=== PATIENT | female | born 1965 | race Caucasian/White ===

== ENCOUNTER 2017-01-15 12:55 | Inpatient (IN) | payer BC, OTHER ==
[~2017-01-15] VITALS: Ht 167.6 cm; Wt 96.0 kg
[2017-01-15 13:47] LABS: MEAN CORPUSCULAR HEMOGLOBIN 32.4 pg (27.0-33.0); MEAN CORPUSCULAR HGB CONC 34.6 g/dl (32.0-36.5); MEAN CORPUSCULAR VOLUME 93.7 fl (80.0-96.0); RED CELL DISTRIBUTION WIDTH 11.8 % (11.5-14.5); WHITE BLOOD COUNT 4.1 K/mm3 (4.0-10.0)
[2017-01-15] MEDS ORDERED: ACETYLCYSTEINE IV ONE ×2 (14:00→19:00)
[2017-01-15] MEDS ORDERED: D5W IV ONE ×2 (14:00→19:00)
[2017-01-15 14:01] LABS: INR 0.96
[2017-01-15 14:17] LABS: ALBUMIN 4.3 GM/DL (3.2-5.2); ALBUMIN/GLOBULIN RATIO 1.39 (1.00-1.93); ALKALINE PHOSPHATASE 82 U/L (45-117); ALT/SGPT 123 U/L (12-78); ANION GAP 17 MEQ/L (8-16); AST/SGOT 79 U/L (15-37); BILIRUBIN,DIRECT < 0.1 MG/DL (0.0-0.2); BILIRUBIN,TOTAL 0.3 MG/DL (0.2-1.0); BLOOD UREA NITROGEN 16 MG/DL (7-18); CARBON DIOXIDE LEVEL 21 MEQ/L (21-32); CHLORIDE LEVEL 104 MEQ/L (98-107); CREATININE FOR GFR 0.68 MG/DL (0.55-1.02); GLOMERULAR FILTRATION RATE > 60.0 (>51); GLUCOSE, FASTING 147 MG/DL (70-105); SODIUM LEVEL 142 MEQ/L (136-145); TOTAL PROTEIN 7.4 GM/DL (6.4-8.2)
[2017-01-15] MEDS ORDERED: ONDANSETRON 4MG/2ML VIAL (J2405) As Ordered ONE (14:31)
[2017-01-15] MEDS ORDERED: METO12TA PO (14:51)
[2017-01-15] MEDS ORDERED: OMEP20CA3 PO (14:51)
[2017-01-15] MEDS ORDERED: LEVO50TA5 PO (14:51)
[2017-01-15] MEDS ORDERED: ACETYLCYSTEINE 3,700 MG in D5W 500 ML IV ONE (15:00)
[2017-01-15] MEDS ORDERED: OXAZEPAM 15 MG CAP As Ordered ONE ×2 (15:31→19:49)
[2017-01-15] MEDS ORDERED: METOPROLOL TART 50 MG TAB As Ordered ONE ×2 (15:31→19:48)
[2017-01-15 15:44] LABS: AMPHETAMINES LEVEL URINE NEGATIVE (NEGATIVE); BENZODIAZEPINES URINE NEGATIVE (NEGATIVE); COCAINE METABOLITE URINE NEGATIVE (NEGATIVE); CONTROL LINE INT CTR LINE PRESENT; METHADONE URINE NEGATIVE (NEGATIVE); OPIATES URINE POSITIVE (NEGATIVE); TRICYCLIC ANTIDEPRESS URINE NEGATIVE (NEGATIVE)
[2017-01-15] MEDS ORDERED: LORazepam 2 MG/ML VIAL (J2060) As Ordered ONE (16:19)
[2017-01-15] MEDS ORDERED: METOPROLOL 5 MG/5 ML VIAL As Ordered ONE (16:19)
[2017-01-15] MEDS ORDERED: FOLIC ACID 1 MG in NS 50 ML IV ONE (16:45)
[2017-01-15] MEDS ORDERED: THIAMINE 100 MG TAB PO ONE (19:00)
[2017-01-15] MEDS ORDERED: MULTIVITAMINS/MINERALS THERAP 1 TAB PO ONE (19:00)
[2017-01-15] MEDS ORDERED: OXAZEPAM 15 MG CAP PO ONE (19:00)
--- NOTE | 2017-01-15 22:43 | HPE ---
DATE OF ADMISSION: 01/15/2017 PRIMARY CARE PROVIDER: Dr. Kramer REASON FOR ADMISSION: Suicide attempt. HISTORY OF PRESENT ILLNESS: Patient is a 51-year-old female with past medical history significant for depression and previous suicide attempt, hypertension, hyperlipidemia, hypothyroidism and gastroesophageal reflux disease (GERD), presented to the emergency room via ambulance. The patient stated that at 6:30 this morning she took an unknown number of Percocet; she was trying to kill herself. She had a similar attempt 2 years ago. She was also drinking wine. She stated her boss came to her house to check on her and called a manager state. When the patient did not answer the door, they climbed through the window and found her on her bed. The patient had vomited around noon today. She was hypertensive and tachycardiac. She was brought into the emergency room. She was started on Mucomyst and intravenous (IV) fluids. The patient was alert and oriented times three. She stated she was trying to hurt herself, did not want to any family contacted lives, at home alone. After her Mucomyst was started, hospitalist was called for the admission. REVIEW OF SYSTEMS: The patient admits to feeling fatigue and nauseated, otherwise review of system was negative. PAST MEDICAL HISTORY: Significant for hypertension, hypothyroidism, hyperlipidemia, GERD. HOME MEDICATIONS: - levothyroxine 50 mcg by mouth daily - metoprolol 25 mg by mouth twice a day - omeprazole 20 mg by mouth daily ALLERGIES: SULFA, reaction rash. PAST SURGICAL HISTORY: Significant for dilation and curettage (D and C), hysterectomy, tonsillectomy, adenoidectomy, left meniscal repair and right thumb surgery. SOCIAL HISTORY: The patient denies tobacco use but states she drinks a bottle and a half of wine a day. Lives alone. FAMILY HISTORY: Noncontributory. PHYSICAL EXAMINATION: Blood pressure initially was 208/92, repeat was 150/89, pulse was 113 initially, repeat was 89, respiratory rate 18, temperature 96.9, pulse oximetry 95% on room air. HEENT: Pupils equal, round, reactive. Neck: Supple. No jugular venous distention (JVD). Lungs: Clear to auscultation (CTA) bilaterally. Abdomen: Soft, nontender, nondistended. Cardiac: Tachycardiac. No murmurs appreciated. Extremities: No clubbing, cyanosis or edema. LABORATORY FINDINGS: WBC 4.1, hemoglobin 14.1, hematocrit 40.8, platelet count 231. Sodium 142, potassium 4, chloride 104, BUN 16, creatinine 0.68, fasting glucose 147, total bilirubin 0.3, AST 79, ALT 123. Toxicology was positive for opioids. Salicylate less than 1.7. Acetaminophen level was 66.1 at 1 o'clock. Alcohol level was 0.077. Coag: INR 0.96, PT 12.9. ASSESSMENT AND PLAN: 1. Suicide attempt with Percocet overdose. The patient was started on Mucomyst. We will admit the patient to telemetry monitoring overnight to monitor for any arrhythmias. Repeat electrocardiogram (EKG) in the morning. The patient will need a psychiatric evaluation once medically cleared. She admits to having suicide thoughts and attempted suicide. She has a history of suicide attempts in the past as well. 2. History of hypertension. We will resume the patient's home medications. 3. History of hypothyroidism. Continue levothyroxine. 4. History of gastroesophageal reflux disease. Will continue the patient's omeprazole 20 mg by mouth daily. 5. Alcohol abuse. We will start the patient on Serax, thiamine, folate and multivitamin. The patient received a dose of Ativan in the emergency room. 6. Deep vein thrombosis (DVT) prophylaxis. Sequential compression devices (SCDs) while in bed.
[2017-01-16 00:05] VITALS: BP 183/99
--- NOTE | 2017-01-16 00:07 | EDDOCDS ---
Physician Documentation [facility] Name: Mary Carmen Sands Age: 51 yrs Sex: Female : 1965 Arrival Date: 01/15/2017 Time: 12:55 Bed Admit Hold Private MD: Disposition: 01/15/17 14:59 Hospitalization ordered by Lyudmila Arauz for Inpatient Admission. Preliminary diagnosis is Intentional self-harm by other specified means - overdose. - Bed requested for [facility] ([facility]). - Status is Inpatient Admission. sls1 - Condition is Stable. - Problem is new. - Symptoms are unchanged. Historical: - Allergies: SULFA (SULFONAMIDES) (Rash); - Home Meds: 1. metoprolol tartrate 50 mg Oral tab 1 tab 2 times per day (Last dose: 01/14/2017) 2. pravastatin oral Unknown oral once daily (Last dose: Unknown) 3. Levothyroxine Unknown Oral once daily (Last dose: 01/14/2017) 4. omeprazole 20 mg Oral cpDR 1 cap once daily (Last dose: 01/14/2017) - PMHx: Hypothyroidism; Hypertension; Hypercholesterolemia; GERD; Diabetes - NIDDM: controlled; - PSHx: D & C; Hysterectomy; Tonsillectomy; Adenoidectomy; left menicus repair; rt thumb; - Social history: Smoking status: Patient states was never smoker of tobacco. No barriers to communication noted, The patient speaks fluent Slovak. - Family history: Not pertinent. - : The pt / caregiver states he / she is not on anticoagulants. Home medication list is obtained from the patient. - Exposure Risk Screening:: None identified. INTERPRETIVE NATURALIST: 01/15 13:18 LMP N/A - Hysterectomy [facility] Vital Signs: 13:00 BP 208 / 92 (auto/); kpj 13:01 Pulse 113 MON; Resp 18; Pulse Ox 95% on R/A; kpj 13:03 BP 208 / 92; Pulse 108; Resp 20; Temp 96.9(TE); Pulse Ox 95% on R/A; Weight 74.84 kg / nb2 164.99 lbs (R); Height 5 ft. 6 in. (167.64 cm) (R); Pain 0/10; 13:11 BP 189 / 110 (auto/); kpj 13:11 Pulse 98 MON; Resp 18; Pulse Ox 95% on R/A; kpj 13:17 BP 174 / 89 (auto/); kpj 13:17 Pulse 90 MON; Resp 18; Pulse Ox 95% on R/A; kpj 13:34 BP 164 / 87 (auto/); kpj 13:34 Pulse 88 MON; Resp 16; Pulse Ox 93% on R/A; kpj 13:49 BP 150 / 89 (auto/); kpj 13:49 Pulse 89 MON; Resp 16; Pulse Ox 93% on R/A; kpj 14:04 BP 175 / 96 (auto/); nn1 14:19 BP 166 / 89 (auto/); nn1 14:19 Pulse 89 MON; Pulse Ox 96% ; nn1 14:33 Pulse 91 MON; Pulse Ox 95% ; jc4 14:34 BP 172 / 96 (auto/); jc4 14:49 BP 170 / 95 (auto/); jc4 14:49 Pulse 90 MON; Pulse Ox 95% ; jc4 15:04 BP 182 / 98 (auto/); jc4 15:05 Pulse 99 MON; Pulse Ox 96% ; jc4 15:11 Pulse 96 MON; Pulse Ox 96% ; jc4 15:12 BP 191 / 102; Pulse 91; Resp 20; Temp 97.9(T); Pulse Ox 95% on R/A; Pain 0/10; jc4 15:12 BP 195 / 102 (auto/); jc4 15:50 BP 207 / 101 (auto/); jc4 15:50 Pulse 90 MON; Pulse Ox 95% ; jc4 16:03 Pulse 90 MON; Pulse Ox 95% ; jc4 16:05 BP 202 / 100 (auto/); jc4 16:20 BP 200 / 104 (auto/); jc4 16:20 Pulse 84 MON; Pulse Ox 94% ; jc4 16:35 BP 175 / 92 (auto/); jc4 16:49 Pulse 74 MON; Pulse Ox 94% ; jc4 16:50 BP 174 / 100 (auto/); jc4 17:05 BP 169 / 101 (auto/); jc4 17:05 Pulse 75 MON; Pulse Ox 94% ; jc4 17:18 Pulse 73 MON; Pulse Ox 95% ; jc4 17:20 BP 184 / 98 (auto/); jc4 17:34 Pulse 75 MON; Pulse Ox 94% ; jc4 17:35 BP 184 / 89 (auto/); jc4 17:50 BP 180 / 89 (auto/); jc4 17:51 Pulse 78 MON; Pulse Ox 92% ; jc4 18:05 BP 178 / 87 (auto/); jc4 18:09 Pulse 76 MON; Pulse Ox 95% ; jc4 18:20 BP 180 / 89 (auto/); nn1 18:20 Pulse 75 MON; Pulse Ox 95% ; nn1 18:35 BP 183 / 90 (auto/); nn1 18:35 Pulse 77 MON; Pulse Ox 94% ; nn1 18:50 BP 174 / 91 (auto/); nn1 18:50 Pulse 71 MON; Pulse Ox 95% ; nn1 19:05 BP 193 / 87 (auto/); nn1 19:05 Pulse 75 MON; Pulse Ox 95% ; nn1 19:20 BP 230 / 106 (auto/); nn1 19:20 Pulse 87 MON; nn1 19:21 BP 213 / 102 (auto/); nn1 19:21 Pulse 80 MON; Pulse Ox 94% ; nn1 19:35 BP 202 / 92 (auto/); nn1 19:35 Pulse 75 MON; Pulse Ox 95% ; nn1 19:50 BP 186 / 90 (auto/); nn1 19:50 Pulse 72 MON; Pulse Ox 95% ; nn1 20:00 Resp 20; nn1 20:05 BP 198 / 97 (auto/); nn1 20:05 Pulse 80 MON; Pulse Ox 95% ; nn1 20:20 BP 204 / 101 (auto/); nn1 20:20 Pulse 73 MON; Pulse Ox 94% ; nn1 20:35 BP 184 / 84 (auto/); nn1 20:35 Pulse 71 MON; Pulse Ox 93% ; nn1 20:50 BP 203 / 96 (auto/); nn1 20:50 Pulse 75 MON; Pulse Ox 95% ; nn1 21:05 BP 189 / 88 (auto/); nn1 21:05 Pulse 73 MON; Pulse Ox 95% ; nn1 21:20 BP 189 / 93 (auto/); nn1 21:20 Pulse 72 MON; Pulse Ox 96% ; nn1 21:35 BP 199 / 95 (auto/); nn1 21:35 Pulse 74 MON; Pulse Ox 93% ; nn1 21:50 BP 189 / 86 (auto/); nn1 21:50 Pulse 66 MON; Pulse Ox 94% ; nn1 21:58 Resp 20; Temp 98.2(O); nn1 22:05 BP 175 / 84 (auto/); nn1 22:05 Pulse 65 MON; Pulse Ox 94% ; nn1 22:20 BP 159 / 84 (auto/); nn1 22:20 Pulse 62 MON; Pulse Ox 94% ; nn1 22:35 BP 153 / 82 (auto/); nn1 22:35 Pulse 62 MON; Pulse Ox 94% ; nn1 23:05 BP 171 / 81 (auto/); nn1 23:05 Pulse 63 MON; Pulse Ox 96% ; nn1 23:20 BP 169 / 85 (auto/); nn1 23:20 Pulse 62 MON; Pulse Ox 97% ; nn1 23:35 BP 154 / 84 (auto/); nn1 23:35 Pulse 60 MON; Pulse Ox 96% ; nn1 23:50 BP 154 / 86 (auto/); nn1 23:50 Pulse 62 MON; Pulse Ox 97% ; nn1 23:50 Resp 18; Temp 98.2(TE); Pulse Ox 96% on R/A; nn1 23:50 Pain 0/10; nn1 13:03 Body Mass Index 26.63 (74.84 kg, 167.64 cm) nb2 MDM: 13:15 Consult PFS/PSA/Fitness Technician ordered. sd1 13:15 Consult PFS/PSA/Fitness Technician: Patient's case requires discussion with on-call sd1 Psychiatrist ordered. 13:15 PSA/PFS to call Nursing Bartender Helper, to enter patient data on [place] Safe Act if patient sd1 involuntarily admitted or transferred for SI or HI ordered. 13:15 Peripheral Edp Equipment Operator/Pulse Ox/q 15 min VS ordered. sd1 13:15 Confirm accurate psychiatric medication list and times of last dosage ordered. sd1 13:15 Detain Pt Until Medically/PFS Cleared ordered. sd1 13:15 IV Saline Lock ordered. sd1 13:15 Rhythm Strip to chart ordered. sd1 13:15 NS 0.9% 1000 ml IV at 250 mL/hr continuous ordered. sd1 13:16 Acetaminophen Level Ordered. EDMS 13:16 Basic Metabolic Profile Ordered. EDMS 13:16 Complete Blood Count Ordered. EDMS 13:16 Drug Eval Toxicology ED Only Ordered. EDMS 13:16 Ethyl Alcohol (ethanol) Ordered. EDMS 13:16 Liver Profile Ordered. EDMS 13:16 Salicylate Level Ordered. EDMS 13:16 Thyroid Stimulating Hormone Ordered. EDMS 13:16 ECG WITH READING ER PHYS+CARDIAG ordered. EDMS 13:19 Acetylcysteine (1st Step) 150mg/kg 150 mg/kg IVPB once over 60 mins; mix in 250mL of sd1 D5W- 11 grams IV ordered. 13:31 PT/INR Ordered. EDMS 14:27 Ondansetron 4 mg IVP once ordered. sd1 14:27 Acetaminophen Level Reviewed. sd1 14:27 Basic Metabolic Profile Reviewed. sd1 14:27 Ethyl Alcohol (ethanol) Reviewed. sd1 14:27 Liver Profile Reviewed. sd1 14:27 Salicylate Level Reviewed. sd1 14:27 Complete Blood Count Reviewed. sd1 14:27 Thyroid Stimulating Hormone Reviewed. sd1 14:27 PT/INR Reviewed. sd1 14:31 Acetylcysteine (2nd Step) 50mg/kg 50 mg/kg IVPB once over 4 hrs; mix in 500mL of D5W; sd1 3700mg IV ordered. 14:31 Acetylcysteine (3rd Step) 100mg/kg 100 mg/kg IVPB once over 16 hrs; mix in 1000mL of sd1 D5W; 7400mg IV ordered. 14:31 BED REQUEST+ADM ordered. EDMS 15:06 Financial registration complete. [id number] 15:24 Oxazepam 30 mg PO once ordered. sd1 15:27 [facility] Payment Agreement was scanned into [employer] and attached to record. ks16 15:30 Metoprolol (Tartrate) 50 mg PO once ordered. jc4 16:32 Metoprolol 5 mg IVP once; Hold for SBP < 100 or HR < 60. ordered. jc4 16:32 LORazepam 1 mg IVP once ordered. jc4 16:47 Admission / Observation Status ordered. EDMS 16:47 NPO DIET ordered. EDMS 19:03 Consult PFS/PSA/Fitness Technician complete. cl 19:03 Consult PFS/PSA/Fitness Technician: Patient's case requires discussion with on-call cl Psychiatrist complete. 19:03 PSA/PFS to call Nursing Bartender Helper, to enter patient data on [place] Safe [place] if patient cl involuntarily admitted or transferred for SI or HI complete. 19:39 Metoprolol (Tartrate) 50 mg PO once ordered. nn1 19:39 Oxazepam 30 mg PO once ordered. nn1 19:50 Written Provider Order was scanned into [employer] and attached to record. kb5 21:15 ELECTROCARDIOGRAM ADULT ordered. EDMS 21:16 CBC WITH DIFFERENTIAL Ordered. EDMS 21:16 COMPLETE COMPHRENSIVE METABOLI Ordered. EDMS 21:16 MAGNESIUM LEVEL Ordered. EDMS Administered Medications: 13:47 Drug: NS 0.9% 1000 ml [sodium chloride 0.9 % intravenous solution] Route: IV; Rate: 250 kpj mL/hr; Site: right forearm; 14:20 Drug: Acetylcysteine (1st Step) 150mg/kg 16643 mg [acetylcysteine 200 mg/mL (20 %) [facility] intravenous solution] Route: IVPB; Infused Over: 60 mins; Site: right forearm; 15:28 Follow up: IV Status: Completed infusion; IV Intake: 250ml jc4 14:35 Drug: Ondansetron 4 mg [ondansetron HCl 2 mg/mL intravenous solution (2 mL)] Route: kpj IVP; Site: right forearm; 15:28 Drug: Acetylcysteine (2nd Step) 50mg/kg 3742 mg [acetylcysteine 200 mg/mL (20 %) [facility] intravenous solution] Route: IVPB; Infused Over: 4 hrs; Site: right forearm; 19:57 Follow up: IV Status: Completed infusion; IV Intake: 500ml nn1 15:34 Drug: Oxazepam 30 mg [oxazepam 15 mg capsule (2 caps)] Route: PO; jc4 15:34 Drug: Metoprolol 50 mg [metoprolol tartrate 50 mg tablet (1 tabs)] Route: PO; jc4 16:25 Drug: LORazepam 1 mg [lorazepam 2 mg/mL injection solution (0.5 mL)] Route: IVP; Site: jc4 right forearm; 16:27 Drug: Metoprolol 5 mg [metoprolol 5 mg/5 mL intravenous solution (5 mL)] Route: IVP; jc4 Site: right forearm; 19:56 Drug: Acetylcysteine (3rd Step) 100mg/kg 7484 mg [acetylcysteine 200 mg/mL (20 %) [facility] intravenous solution] Route: IVPB; Infused Over: 16 hrs; Site: right wrist; 23:50 Follow up: IV Status: Infusion continued upon admit nn1 19:56 Drug: Metoprolol 50 mg [metoprolol tartrate 50 mg tablet (1 tabs)] Route: PO; nn1 19:56 Drug: Oxazepam 30 mg [oxazepam 15 mg capsule (2 caps)] Route: PO; nn1 Signatures: Dispatcher [employer] EDKayla Blair MD MD sd1 Liliya Mccrary, RN RN kpj Cabrera, Shant, PSA PSA cl Santino Guthrie, MANUFACTURER'S REPRESENTATIVE MANUFACTURER'S REPRESENTATIVE kb5 Anjali Luu RN RN jc4 Lo James RN RN sls1 Miladis Ross,RN RN nn1 Farhana Bautista, Reg Reg ks16 The chart was reviewed and I authenticate all verbal orders and agree with the evaluation and treatment provided.Attachments: 15:27 [facility] Payment Agreement ks16 19:50 Written Provider Order kb5 [id number]
--- NOTE | 2017-01-16 00:07 | EDDOCDS ---
Nurse's Notes [facility] Name: Mary Carmen Sands Age: 51 yrs Sex: Female : 1965 Arrival Date: 01/15/2017 Time: 12:55 Bed Admit Hold Private MD: Diagnosis: Intentional self-harm by other specified means-overdose Presentation: 01/15 13:07 Presenting complaint: Patient states: depressed and was trying to kill self by drinking [facility] wine and took unknown quantity of percocet at 0500. thinks it was a full bottle Pt's boss called [employer] to check the welfare, pt did not answer the door so they climbed through a window and found pt on her bed . EMS were called pt trans[ported to the hospital. Vomited at 1200. Adult Sepsis Screening: The patient does not have new or worsening altered mentation. Patient's respiratory rate is less than 22. Systolic blood pressure is greater than 100. Patient has a qSOFA score of 0- Negative Sepsis Screen. Suicide/Homicide risk assessment- The patient admits to and/or has been reported to be having suicidal ideations. The patient reports that he/she has not been admitted to an inpatient mental health facility in the last 30 days. The patient reports that he/she has a recent or current history of substance abuse. The patient reports that he/she has a prior history of suicide attempt and/or organized plan. The patient reports that he/she has experienced a significant life altering event in the last 30 days. The patient reports that he/she has adequate social support. The patient reports he/she has no significant chronic medical condition(s). Status: Patient is not a territory service representative or dependent. Transition of care: patient was not received from another setting of care. 13:07 Acuity: AFSHAN Level 2 [facility] 13:07 Method Of Arrival: Ambulance [facility] Triage Assessment: 13:18 General: Appears comfortable, well nourished, Behavior is crying, flat. Pain: Denies [facility] pain. Pt Declines HIV testing. The patient is triaged at the bedside. See Assessment in Nurses Notes section of ED record. 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 metoprolol tartrate 50 mg Oral tab 1 tab 2 times per day (Last dose: 01/14/2017) 2. pravastatin oral Unknown oral once daily (Last dose: Unknown) 3. Levothyroxine Unknown Oral once daily (Last dose: 01/14/2017) 4. omeprazole 20 mg Oral cpDR 1 cap once daily (Last dose: 01/14/2017) - PMHx: Hypothyroidism; Hypertension; Hypercholesterolemia; GERD; Diabetes - NIDDM: controlled; - PSHx: D & C; Hysterectomy; Tonsillectomy; Adenoidectomy; left menicus repair; rt thumb; - Social history: Smoking status: Patient states was never smoker of tobacco. No barriers to communication noted, The patient speaks fluent Stateless. - Family history: Not pertinent. - : The pt / caregiver states he / she is not on anticoagulants. Home medication list is obtained from the patient. - Exposure Risk Screening:: None identified. Screenin:08 Screening information is obtained from the patient. Fall risk: No risks identified. kpj Assistance ADL's: requires no assistance with activities of daily living. Abuse/DV Screen: The patient / caregiver reports he/she is: not in a situation that causes fear, pain or injury. Nutritional screening: No deficits noted. Advance Directives: Currently, there is no health care proxy. There is no active DNR order. There is no living will. There is no Power of Casting Wheel Operator. Advance directive information has not previously been placed in an [facility] medical record. Further advance directive information is declined. home support is adequate. Assessment: 13:50 General: Appears comfortable, well nourished, Behavior is crying, flat. Pain: Denies kpj pain. Neurological: Level of Consciousness is lethargic, obeys commands, Oriented to person, place, time, Speech is normal, Pupils are PERRLA. EENT: Oral mucosa is dry. Cardiovascular: Capillary refill < 3 seconds in bilateral fingers toes Edema is absent. Pulses are all present. Rhythm is sinus rhythm No ectopy. Chest pain is denied. 13:50 Respiratory: Airway is patent Respiratory effort is even, unlabored, Respiratory kpj pattern is regular, symmetrical, Breath sounds are clear bilaterally. GI: Abdomen is non- distended Bowel sounds hypoactive in right upper quadrant, left upper quadrant, right lower quadrant and left lower quadrant Abd is soft and non tender X 4 quads. Reports vomited x 1 at 1200, unsure if there were any pill fragments in emesis. Derm: Skin is pink, warm & dry. Musculoskeletal: No deficits noted. 13:50 General: states feels like a prisoner in her home a family of skunks living under her [facility] house spraying every night and keeping her awake at night. idon't want to live anymore, ''i don't want any help''.. 14:08 General: Appears comfortable, Behavior is cooperative, avoids eye contact. Pain: Denies [facility] pain. Neurological: Pupils are PERRLA, sleepy but arouses easily.. Cardiovascular: Rhythm is sinus rhythm No ectopy. Respiratory: Airway is patent Respiratory effort is even, unlabored, Respiratory pattern is regular, symmetrical. Derm: Skin is pink, warm & dry. 14:30 General: vomited 100 cc liquid. [facility] 14:50 Reassessment: Patient appears in no apparent distress at this time. resting quietly on [facility] stretcher, no further emesis. monitor NSR without ectopy, IV patent , loading dose of acetylcysteine infusing per orders.resp. full and easy. Remains in constant view of ED staff.. 15:35 General: Appears in no apparent distress, Behavior is flat. Pain: Denies pain. jc4 Neurological: Level of Consciousness is awake, alert. Cardiovascular: Rhythm is sinus rhythm No ectopy. Respiratory: Airway is patent Respiratory effort is even, unlabored, Respiratory pattern is regular, symmetrical. GI: other patient vomited immediately following taking medications. 2 Serax capsules noted in emesis bag. Dr. Pedro notified. Derm: Skin is pink, warm & dry. 15:55 General: Dr. Arauz in to examine patient. jc4 16:33 General: Pt resting on stretcher. Affect flat. Color pink, skin warm and dry. jc4 Respirations easy and full. 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 IVF infusing well. Side rails up. No distress noted at this time. 17:23 General: Appears in no apparent distress, Pt lying on stretcher with eyes closed. Color jc4 pink, skin warm and dry. Respirations easy and full. 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 IV infusing well, site clear. 18:09 General: Pt resting with eyes closed. Respirations easy and full. storm window installer - jc4 sinus rhythm without ectopy. 19:57 General: Appears in no apparent distress, comfortable, Behavior is cooperative, flat, nn1 Patient assisted to bedside commode, once patient back in bed blood pressure increased. Dr. Arauz consulted, patient medicated per orders. Patient tolerated oral medication well, denies nausea at this time. . Pain: Denies pain. Neurological: Level of Consciousness is awake, alert, obeys commands, Oriented to person, place, time, Moves all extremities. Speech is normal. Respiratory: Airway is patent Respiratory effort is even, unlabored, Respiratory pattern is regular, symmetrical. Derm: Skin is pink, warm & dry. 20:47 General: Family here to see patient, patient approved of seeing family at this time. . nn1 21:29 General: Family at bedside at this time. Patient tearful. Sitter monitoring patient. . nn1 22:30 General: SBAR sent to [facility]. . Neurological: Level of Consciousness is awake, alert, nn1 obeys commands, Oriented to person, place, time. Respiratory: Airway is patent Respiratory effort is even, unlabored, Respiratory pattern is regular, symmetrical. Derm: Skin is pink, warm & dry. 23:14 General: Hospitalist approved of patient having cell phone, patient given phone. nn1 Patient has been calm, reports no complaints at this time. Patient aware of plan of care at this time.. 23:49 General: Appears in no apparent distress, comfortable, Behavior is appropriate for age, nn1 cooperative. Pain: Denies pain. Neurological: Level of Consciousness is awake, alert, obeys commands, Oriented to person, place, time. Respiratory: Airway is patent Respiratory effort is even, unlabored, Respiratory pattern is regular, symmetrical. Derm: Skin is pink, warm & dry. Overdose: 13:50 MH Triage: Level 2: The patient displays suicidal ideations. Patient took unknown [facility] quantity percocet 3/325 at 0500 and was drinking wine. Overdose occurred 8-10 hours ago. Vital Signs: 13:00 BP 208 / 92 (auto/); kpj 13:01 Pulse 113 MON; Resp 18; Pulse Ox 95% on R/A; kpj 13:03 BP 208 / 92; Pulse 108; Resp 20; Temp 96.9(TE); Pulse Ox 95% on R/A; Weight 74.84 kg nb2 (R); Height 5 ft. 6 in. (167.64 cm) (R); Pain 0/10; 13:11 BP 189 / 110 (auto/); kpj 13:11 Pulse 98 MON; Resp 18; Pulse Ox 95% on R/A; kpj 13:17 BP 174 / 89 (auto/); kpj 13:17 Pulse 90 MON; Resp 18; Pulse Ox 95% on R/A; kpj 13:34 BP 164 / 87 (auto/); kpj 13:34 Pulse 88 MON; Resp 16; Pulse Ox 93% on R/A; kpj 13:49 BP 150 / 89 (auto/); kpj 13:49 Pulse 89 MON; Resp 16; Pulse Ox 93% on R/A; kpj 14:04 BP 175 / 96 (auto/); nn1 14:19 BP 166 / 89 (auto/); nn1 14:19 Pulse 89 MON; Pulse Ox 96% ; nn1 14:33 Pulse 91 MON; Pulse Ox 95% ; jc4 14:34 BP 172 / 96 (auto/); jc4 14:49 BP 170 / 95 (auto/); jc4 14:49 Pulse 90 MON; Pulse Ox 95% ; jc4 15:04 BP 182 / 98 (auto/); jc4 15:05 Pulse 99 MON; Pulse Ox 96% ; jc4 15:11 Pulse 96 MON; Pulse Ox 96% ; jc4 15:12 BP 191 / 102; Pulse 91; Resp 20; Temp 97.9(T); Pulse Ox 95% on R/A; Pain 0/10; jc4 15:12 BP 195 / 102 (auto/); jc4 15:50 BP 207 / 101 (auto/); jc4 15:50 Pulse 90 MON; Pulse Ox 95% ; jc4 16:03 Pulse 90 MON; Pulse Ox 95% ; jc4 16:05 BP 202 / 100 (auto/); jc4 16:20 BP 200 / 104 (auto/); jc4 16:20 Pulse 84 MON; Pulse Ox 94% ; jc4 16:35 BP 175 / 92 (auto/); jc4 16:49 Pulse 74 MON; Pulse Ox 94% ; jc4 16:50 BP 174 / 100 (auto/); jc4 17:05 BP 169 / 101 (auto/); jc4 17:05 Pulse 75 MON; Pulse Ox 94% ; jc4 17:18 Pulse 73 MON; Pulse Ox 95% ; jc4 17:20 BP 184 / 98 (auto/); jc4 17:34 Pulse 75 MON; Pulse Ox 94% ; jc4 17:35 BP 184 / 89 (auto/); jc4 17:50 BP 180 / 89 (auto/); jc4 17:51 Pulse 78 MON; Pulse Ox 92% ; jc4 18:05 BP 178 / 87 (auto/); jc4 18:09 Pulse 76 MON; Pulse Ox 95% ; jc4 18:20 BP 180 / 89 (auto/); nn1 18:20 Pulse 75 MON; Pulse Ox 95% ; nn1 18:35 BP 183 / 90 (auto/); nn1 18:35 Pulse 77 MON; Pulse Ox 94% ; nn1 18:50 BP 174 / 91 (auto/); nn1 18:50 Pulse 71 MON; Pulse Ox 95% ; nn1 19:05 BP 193 / 87 (auto/); nn1 19:05 Pulse 75 MON; Pulse Ox 95% ; nn1 19:20 BP 230 / 106 (auto/); nn1 19:20 Pulse 87 MON; nn1 19:21 BP 213 / 102 (auto/); nn1 19:21 Pulse 80 MON; Pulse Ox 94% ; nn1 19:35 BP 202 / 92 (auto/); nn1 19:35 Pulse 75 MON; Pulse Ox 95% ; nn1 19:50 BP 186 / 90 (auto/); nn1 19:50 Pulse 72 MON; Pulse Ox 95% ; nn1 20:00 Resp 20; nn1 20:05 BP 198 / 97 (auto/); nn1 20:05 Pulse 80 MON; Pulse Ox 95% ; nn1 20:20 BP 204 / 101 (auto/); nn1 20:20 Pulse 73 MON; Pulse Ox 94% ; nn1 20:35 BP 184 / 84 (auto/); nn1 20:35 Pulse 71 MON; Pulse Ox 93% ; nn1 20:50 BP 203 / 96 (auto/); nn1 20:50 Pulse 75 MON; Pulse Ox 95% ; nn1 21:05 BP 189 / 88 (auto/); nn1 21:05 Pulse 73 MON; Pulse Ox 95% ; nn1 21:20 BP 189 / 93 (auto/); nn1 21:20 Pulse 72 MON; Pulse Ox 96% ; nn1 21:35 BP 199 / 95 (auto/); nn1 21:35 Pulse 74 MON; Pulse Ox 93% ; nn1 21:50 BP 189 / 86 (auto/); nn1 21:50 Pulse 66 MON; Pulse Ox 94% ; nn1 21:58 Resp 20; Temp 98.2(O); nn1 22:05 BP 175 / 84 (auto/); nn1 22:05 Pulse 65 MON; Pulse Ox 94% ; nn1 22:20 BP 159 / 84 (auto/); nn1 22:20 Pulse 62 MON; Pulse Ox 94% ; nn1 22:35 BP 153 / 82 (auto/); nn1 22:35 Pulse 62 MON; Pulse Ox 94% ; nn1 23:05 BP 171 / 81 (auto/); nn1 23:05 Pulse 63 MON; Pulse Ox 96% ; nn1 23:20 BP 169 / 85 (auto/); nn1 23:20 Pulse 62 MON; Pulse Ox 97% ; nn1 23:35 BP 154 / 84 (auto/); nn1 23:35 Pulse 60 MON; Pulse Ox 96% ; nn1 23:50 BP 154 / 86 (auto/); nn1 23:50 Pulse 62 MON; Pulse Ox 97% ; nn1 23:50 Resp 18; Temp 98.2(TE); Pulse Ox 96% on R/A; nn1 23:50 Pain 0/10; nn1 13:03 Body Mass Index 26.63 (74.84 kg, 167.64 cm) nb2 Vitals: 13:03 Log In Time N/A - ambulance arrival. nb2 ED Course: 13:01 Patient visited by Len Williamson PCA. jrd 13:01 Zora Pettit,RN is Primary Nurse. jrd 13:01 Patient moved to Waiting jrd 13:01 Patient moved to 3 jrd 13:03 Placed in gown. Bed in low position. Call light in reach. Side rails up X2. Cardiac nb2 monitor on. Pulse ox on. NIBP on. 13:04 Patient visited by Felipa Pandya. nb2 13:05 Kayla Pedro MD is Attending Physician. sd1 13:07 Patient visited by Kayla Pedro MD. sd1 13:13 Triage Initiated kpj 13:25 EKG done. (by ED staff). Reviewed by Kayla Pedro MD. nb2 13:27 Patient visited by Felipa Pandya. nb2 13:35 Inserted saline lock: 20 gauge in right forearm and blood collected. The patient kpj tolerated the procedure well. 13:39 PT/INR Sent. kpj 13:39 Acetaminophen Level Sent. kpj 13:39 Basic Metabolic Profile Sent. kpj 13:39 Complete Blood Count Sent. kpj 13:39 Ethyl Alcohol (ethanol) Sent. kpj 13:39 Liver Profile Sent. kpj 13:39 Salicylate Level Sent. kpj 13:39 Thyroid Stimulating Hormone Sent. kpj 13:59 Poison Control notified at 13:[address] Wilkins aware of [facility] poison controls recommendations. 14:08 Resting quietly. Awaiting lab results. kpj 14:08 The patient / caregiver is instructed regarding the plan of care and ED course. Diet: [facility] Patient given ice chips. 14:08 IV is patent, is intact, is free of redness or swelling. solution is infusing as [facility] ordered. 14:35 Patient visited by Felipa Pandya. nb2 14:59 Lyudmila Arauz is Hospitalizing Provider. sd1 15:04 Anjali Luu, CYRIL is Primary Nurse. jc4 15:27 [facility] Payment Agreement was scanned into [employer] and attached to record. ks16 17:23 Patient visited by Anjali Luu RN. jc4 19:05 Primary Nurse role handed off by Anjali Luu RN jc4 19:50 Written Provider Order was scanned into [employer] and attached to record. kb5 20:01 Patient moved to Admit Hold sls1 20:03 Poison Control Poison control called for follow up on patient. Poison control nn1 recommended repeat labs at 1000am tomorrow, 01/16/17. Recommended repeat LFTs, INR, and Tylenol level. Poison control will follow up tomorrow. Provider notified. 23:51 No procedures done that require assistance. nn1 Administered Medications: 13:47 Drug: NS 0.9% 1000 ml [sodium chloride 0.9 % intravenous solution] Route: IV; Rate: 250 kpj mL/hr; Site: right forearm; 14:20 Drug: Acetylcysteine (1st Step) 150mg/kg 37149 mg [acetylcysteine 200 mg/mL (20 %) [facility] intravenous solution] Route: IVPB; Infused Over: 60 mins; Site: right forearm; 15:28 Follow up: IV Status: Completed infusion; IV Intake: 250ml jc4 14:35 Drug: Ondansetron 4 mg [ondansetron HCl 2 mg/mL intravenous solution (2 mL)] Route: kpj IVP; Site: right forearm; 15:28 Drug: Acetylcysteine (2nd Step) 50mg/kg 3742 mg [acetylcysteine 200 mg/mL (20 %) [facility] intravenous solution] Route: IVPB; Infused Over: 4 hrs; Site: right forearm; 19:57 Follow up: IV Status: Completed infusion; IV Intake: 500ml nn1 15:34 Drug: Oxazepam 30 mg [oxazepam 15 mg capsule (2 caps)] Route: PO; 4 15:34 Drug: Metoprolol 50 mg [metoprolol tartrate 50 mg tablet (1 tabs)] Route: PO; jc4 16:25 Drug: LORazepam 1 mg [lorazepam 2 mg/mL injection solution (0.5 mL)] Route: IVP; Site: [facility] right forearm; 16:27 Drug: Metoprolol 5 mg [metoprolol 5 mg/5 mL intravenous solution (5 mL)] Route: IVP; 4 Site: right forearm; 19:56 Drug: Acetylcysteine (3rd Step) 100mg/kg 7484 mg [acetylcysteine 200 mg/mL (20 %) [facility] intravenous solution] Route: IVPB; Infused Over: 16 hrs; Site: right wrist; 23:50 Follow up: IV Status: Infusion continued upon admit nn1 19:56 Drug: Metoprolol 50 mg [metoprolol tartrate 50 mg tablet (1 tabs)] Route: PO; nn1 19:56 Drug: Oxazepam 30 mg [oxazepam 15 mg capsule (2 caps)] Route: PO; nn1 Intake: 15:28 IV: 250.00ml; Total: 250.00ml. jc4 18:30 IV: 1000.00ml (NS); Total: 1250.00ml. jc4 19:57 IV: 500.00ml; Total: 1750.00ml. nn1 Order Results: Lab Order: Acetaminophen Level; SPEC'M 01/15/17 13:32 Test: ACETAMINOPHEN LEVEL; Value: 66.1; Range: 10.0-30.0; Abnormal: Above high normal; Units: UG/ML; Status: F Lab Order: Basic Metabolic Profile; SPEC' 01/15/17 13:32 Test: GLUCOSE, FASTING; Value: 147; Range: 70-105; Abnormal: Above high normal; Units: MG/DL; Status: F Test: BLOOD UREA NITROGEN; Value: 16; Range: 7-18; Units: MG/DL; Status: F Test: CREATININE FOR GFR; Value: 0.68; Range: 0.55-1.02; Units: MG/DL; Status: F Test: GLOMERULAR FILTRATION RATE; Value: > 60.0; Range: >51; Status: F Test: SODIUM LEVEL; Value: 142; Range: 136-145; Units: MEQ/L; Status: F Test: POTASSIUM SERUM; Value: 4.0; Range: 3.5-5.1; Units: MEQ/L; Status: F Test: CHLORIDE LEVEL; Value: 104; Range: 98-107; Units: MEQ/L; Status: F Test: CARBON DIOXIDE LEVEL; Value: 21; Range: 21-32; Units: MEQ/L; Status: F Test: ANION GAP; Value: 17; Range: 8-16; Abnormal: Above high normal; Units: MEQ/L; Status: F Test: CALCIUM LEVEL; Value: 9.0; Range: 8.5-10.1; Units: MG/DL; Status: F Test Note: ; Units are mL/min/1.73 m2 Chronic Kidney Disease Staging per NKF: Stage I & II GFR >=60 Normal to Mildly Decreased Stage III GFR 30-59 Moderately Decreased Stage IV GFR 15-29 Severely Decreased Stage V GFR <15 Very Little GFR Left ESRD GFR <15 on COMPLIANCE VICE PRESIDENT Lab Order: Complete Blood Count; SPEC'M 01/15/17 13:32 Test: WHITE BLOOD COUNT; Value: 4.1; Range: 4.0-10.0; Units: K/mm3; Status: F Test: RED BLOOD COUNT; Value: 4.35; Range: 4.00-5.40; Units: M/mm3; Status: F Test: HEMOGLOBIN; Value: 14.1; Range: 12.0-16.0; Units: g/dl; Status: F Test: HEMATOCRIT; Value: 40.8; Range: 36.0-47.0; Units: %; Status: F Test: MEAN CORPUSCULAR VOLUME; Value: 93.7; Range: 80.0-96.0; Units: fl; Status: F Test: MEAN CORPUSCULAR HEMOGLOBIN; Value: 32.4; Range: 27.0-33.0; Units: pg; Status: F Test: MEAN CORPUSCULAR HGB CONC; Value: 34.6; Range: 32.0-36.5; Units: g/dl; Status: F Test: RED CELL DISTRIBUTION WIDTH; Value: 11.8; Range: 11.5-14.5; Units: %; Status: F Test: PLATELET COUNT, AUTOMATED; Value: 231; Range: 150-450; Units: k/mm3; Status: F Lab Order: Drug Eval Toxicology ED Only; SPEC'M 01/15/17 15:22 Test: AMPHETAMINES LEVEL URINE; Value: NEGATIVE; Range: NEGATIVE; Status: F Test: BARBITURATES URINE; Value: NEGATIVE; Range: NEGATIVE; Status: F Test: BENZODIAZEPINES URINE; Value: NEGATIVE; Range: NEGATIVE; Status: F Test: CANNABINOIDS URINE; Value: NEGATIVE; Range: NEGATIVE; Status: F Test: COCAINE METABOLITE URINE; Value: NEGATIVE; Range: NEGATIVE; Status: F Test: METHADONE URINE; Value: NEGATIVE; Range: NEGATIVE; Status: F Test: OPIATES URINE; Value: POSITIVE; Range: NEGATIVE; Abnormal: Above high normal; Status: F Test: TRICYCLIC ANTIDEPRESS URINE; Value: NEGATIVE; Range: NEGATIVE; Status: F Test Note: ; ALL PRESUMPTIVE POSITIVE FINDINGS ARE UNCONFIRMED NORMAL VALUES THRESHOLD IN NG/ML AMPHETAMINES 1000 METHAMPHETAMINES 1000 BARBITURATES 300 BENZODIAZEPINES 300 CANNABINOIDS (THC) 50 COCAINE METABOLITE 300 METHADONE 300 OPIATES 300 PHENCYCLIDINE 25 TRICYCLIC ANTIDEPRESSANTS 1000 RESULTS ARE FOR MEDICAL PURPOSES ONLY. ALL URINE SPECIMENS WILL BE SAVED FOR 3 DAYS. IF CONFIRMATION OF A PRESUMPTIVE POSTIVE SCREEN RESULT IS DESIRED, CALL CHEMISTRY ([phone]) AND REQUEST URINE TO BE SENT TO REFERENCE LAB. FOR A LIST OF CLOSELY RELATED COMPOUNDS PLEASE CALL THE LAB. Lab Order: Ethyl Alcohol (ethanol); SPEC'M 01/15/17 13:32 Test: ETHYL ALCOHOL (ETHANOL); Value: 0.077; Range: 0.000-0.010; Abnormal: Above high normal; Units: %; Status: F Lab Order: Liver Profile; SPEC'M 01/15/17 13:32 Test: AST/SGOT; Value: 79; Range: 15-37; Abnormal: Above high normal; Units: U/L; Status: F Test: ALT/SGPT; Value: 123; Range: 12-78; Abnormal: Above high normal; Units: U/L; Status: F Test: ALKALINE PHOSPHATASE; Value: 82; Range: 45-117; Units: U/L; Status: F Test: BILIRUBIN,TOTAL; Value: 0.3; Range: 0.2-1.0; Units: MG/DL; Status: F Test: BILIRUBIN,DIRECT; Value: < 0.1; Range: 0.0-0.2; Units: MG/DL; Status: F Test: TOTAL PROTEIN; Value: 7.4; Range: 6.4-8.2; Units: GM/DL; Status: F Test: ALBUMIN; Value: 4.3; Range: 3.2-5.2; Units: GM/DL; Status: F Test: ALBUMIN/GLOBULIN RATIO; Value: 1.39; Range: 1.00-1.93; Status: F Lab Order: Salicylate Level; SPEC'01/15/17 13:32 Test: SALICYLATE LEVEL; Value: < 1.7; Range: 5.0-30.0; Abnormal: Below low normal; Units: MG/DL; Status: F Lab Order: Thyroid Stimulating Hormone; SPEC'M 01/15/17 13:32 Test: THYROID STIMULATING HORMONE; Value: 0.748; Range: 0.358-3.740; Units: uIU/ML; Status: F Lab Order: PT/INR; SPEC'M 01/15/17 13:32 Test: PROTHROMBIN TIME; Value: 12.9; Range: 12.3-14.5; Units: SECONDS; Status: F Test: INR; Value: 0.96; Status: F Test Note: ; THERAPUTIC HUMAN INR VALUES INDICATIONS NORMAL RANGES PROPHYLAXIS/TREATMENT OF: VENOUS THROMBOSIS 2.0-3.0 PULMONARY EMBOLISM 2.0-3.0 PREVENTION OF SYSTEMIC EMBOLISM FROM: TISSUE HEART VALVES 2.0-3.0 ACUTE MYOCARDIAL INFARCTION 2.0-3.0 VALVULAR HEART DISEASE 2.0-3.0 ATRIAL FIBRILLATION 2.0-3.0 MECHANICAL VALVES(HIGH RISK) 2.5-3.5 RECURRENT MYOCARDIAL INFARCTION 2.5-3.5 Outcome: 14:59 Decision to Hospitalize by Provider. sd1 23:50 Discharge Assessment: patient administered narcotics - no. Discharge Assessment: nn1 Patient awake, alert and oriented x 3. No cognitive and/or functional deficits noted. Patient verbalized understanding of disposition instructions. patient administered narcotics - no. The following High Risk Discharge criteria are identified: None. Condition: stable. No special radiology studies were completed. Admission hand-off: Report Faxed Fax receipt verified by CYRIL Camacho . Property :Personal belongings accompany Pt. 01/16 00:06 Patient left the ED. [facility] Signatures: Kayla Pedro MD MD sd1 Liliya Mccrary, RN RN j Santino Guthrie, CLERICAL CAR CHECKER CLERICAL CAR CHECKER kb5 Anjali Luu RN RN terrence4 Lo James RN RN sls1 Len Williamson, CLERICAL CAR CHECKER CLERICAL CAR CHECKER d Miladis Ross,RN RN nn1 Farhana Bautista, Reg Reg [email or web address] Felipa Pandya2 Corrections: (The following items were deleted from the chart) 01/15 13:42 13:07 Presenting complaint: Patient states: depressed and was trying to kill self by [facility] drinking wine and took unknown quantity of percocet at 0500. Pt's boss called [employer] to check the welfare, pt did not answer the door so they climbed through sa window and found pt on her bed . EMS were called pt trans[ported to the hospital. [facility] MTDD
[2017-01-16] MEDS: OXAZEPAM 10 MG CAP PO SCH ×3 (01:40→14:30)
[2017-01-16] MEDS: NS 1,000 ML IV SCH ×3 (01:41→12:22)
[2017-01-16 04:00] VITALS: BP 165/77
[2017-01-16] MEDS ORDERED: LEVOTHYROXINE 0.05 MG TAB (50 MCG) PO SCH (06:00)
[2017-01-16 07:13] LABS: BASO % 0.4 % (0.0-1.0); EOS # 0.1 K/mm3 (0.0-0.50); EOS % 1.2 % (0.0-3.0); LARGE UNSTAINED CELL # 0.1 K/mm3 (0.0-0.4); LARGE UNSTAINED CELL % 1.6 % (0.0-4.0); LYMPH # 1.6 K/mm3 (1.5-4.5); LYMPH % 27.7 % (24.0-44.0); MEAN CORPUSCULAR HEMOGLOBIN 30.4 pg (27.0-33.0); MEAN CORPUSCULAR HGB CONC 33.7 g/dl (32.0-36.5); MEAN CORPUSCULAR VOLUME 90.3 fl (80.0-96.0); MONO # 0.3 K/mm3 (0.0-0.8); MONO % 4.9 % (0.0-5.0); NEUTROPHILS # 3.8 K/mm3 (1.8-7.7); NEUTROPHILS % 64.2 % (36.0-66.0); PLATELET COUNT, AUTOMATED 189 k/mm3 (150-450); RED CELL DISTRIBUTION WIDTH 11.5 % (11.5-14.5); WHITE BLOOD COUNT 5.8 K/mm3 (4.0-10.0)
[2017-01-16 07:25] LABS: ALBUMIN 3.4 GM/DL (3.2-5.2); ALKALINE PHOSPHATASE 64 U/L (45-117); ALT/SGPT 91 U/L (12-78); ANION GAP 13 MEQ/L (8-16); AST/SGOT 47 U/L (15-37); BILIRUBIN,TOTAL 0.9 MG/DL (0.2-1.0); BLOOD UREA NITROGEN 8 MG/DL (7-18); CALCIUM LEVEL 8.8 MG/DL (8.5-10.1); CARBON DIOXIDE LEVEL 24 MEQ/L (21-32); CHLORIDE LEVEL 105 MEQ/L (98-107); CREATININE FOR GFR 0.64 MG/DL (0.55-1.02); GLOMERULAR FILTRATION RATE > 60.0 (>51); GLUCOSE, FASTING 120 MG/DL (70-105); MAGNESIUM LEVEL 1.8 MG/DL (1.8-2.4); POTASSIUM SERUM 3.4 MEQ/L (3.5-5.1); SODIUM LEVEL 142 MEQ/L (136-145); TOTAL PROTEIN 6.5 GM/DL (6.4-8.2)
[2017-01-16 08:00] VITALS: BP 194/98
[2017-01-16] MEDS ORDERED: POTASSIUM CHLORIDE 10 MEQ SR TABLET PO ONE (08:00)
--- NOTE | 2017-01-16 08:34 | ECGEPIP ---
Stationary ECG Study [facility] - ED Test Date: 2017-01-15 Pat Name: GEETHA BUTTERFIELD Department: Room: - Gender: F Patternmaker Metal: viktoria : 1965 Requested By: Kayla Pedro Order Number: [id number] Reading MD: Kayla Pedro Measurements Intervals [place] Rate: 86 P: 57 OK: 183 QRS: 6 QRSD: 102 T: 26 QT: 378 QTc: 452 Interpretive Statements SINUS RHYTHM NSTTW ABNORMALITY INCREASED RATE 09/04/16 Electronically Signed On 01-16-2017 8:33:44 EST by Kayla Pedro
[2017-01-16] MEDS ORDERED: MULTIVITAMINS/MINERALS THERAP 1 TAB PO SCH (09:00)
[2017-01-16] MEDS ORDERED: THIAMINE 100 MG TAB PO SCH (09:00)
[2017-01-16] MEDS ORDERED: ENOXAPARIN 40 MG/0.4 ML SYRINGE (J1650) SC SCH (09:00)
[2017-01-16] MEDS ORDERED: METOPROLOL TART 25 MG TABLET PO SCH (09:00)
[2017-01-16] MEDS ORDERED: OMEPRAZOLE 20 MG CAP PO SCH (09:00)
[2017-01-16] MEDS ORDERED: FOLIC ACID 1 MG TAB PO SCH (09:00)
[2017-01-16 09:20] VITALS: BP 194/98
[2017-01-16 12:00] VITALS: BP 170/88
--- NOTE | 2017-01-16 13:54 | ECGEPIP ---
Stationary ECG Study [facility] Test Date: 2017-01-16 Pat Name: GEETHA BUTTERFIELD Department: Room: [place] [address] Gender: F Hand Drawer In: JOHN : 1965 Requested By: SHAHRIAR DICKSON Order Number: [id number] Reading MD: Nakul Shoemaker Measurements Intervals [place] Rate: 73 P: 22 NV: 177 QRS: 9 QRSD: 96 T: 23 QT: 413 QTc: 456 Interpretive Statements SINUS RHYTHM, Within normal limits. Electronically Signed On 01-16-2017 13:54:17 EST by Nakul Shoemaker
[2017-01-16 16:00] VITALS: BP 165/80
--- NOTE | 2017-01-16 17:45 | DS.PDOC ---
Discharge Summary General Date of Admission Jan 15, 2017 at 16:41 Date of Discharge Jan 16, 2017 at 16:38 Specialist/Consultants Involve Dr. Cottrell of psychiatry Discharge Summary PROCEDURES PERFORMED DURING STAY: None. COMPLICATIONS/CHIEF COMPLAINT: Suicide Attempt By Drug Ingestion ADMISSION DIAGNOSES: 1. . Attempted overdose 2. . Hypertension 3. . Dyslipidemia DISCHARGE DIAGNOSES: 1. . Attempted overdose 2. . Hypertension 3. . Dyslipidemia HISTORY OF PRESENT ILLNESS: 51-year-old female with past medical history of depression and previous suicide attempt, hypertension, dyslipidemia, hypothyroidism, and GERD presented to the ER via ambulance after she was found by her coworkers in bed and laying in vomit. Apparently, the patient took an unknown number of Percocet in addition to wine, and was trying to kill herself. The patient stated that she was trying to hurt herself as well, and would not specify as to the reason why when prompted. Poison control was contacted in the ER, the patient was started on Mucomyst, and was admitted to the hospitalist service for further observation. During the patient's stay in the hospital, her lab work, EKG findings, and vital signs have been stable. In addition, the case was discussed with poison control this afternoon, and they have cleared the patient medically. We have asked psychiatry to evaluate the patient for inpatient mental health unit commitment for further psychiatric stabilization. DISCHARGE MEDICATIONS: Please see below. ALLERGIES: Please see below. PHYSICAL EXAMINATION ON DISCHARGE: VITAL SIGNS: Please see below. GENERAL: Awake, alert, oriented in no acute distress HEENT: Normocephalic, atraumatic NECK: No JVD CARDIOVASCULAR EXAMINATION: Normal rate, normal rhythm, normal S1, S2 RESPIRATORY EXAMINATION: Clear to auscultation bilaterally ABDOMINAL EXAMINATION: Soft, nontender, nondistended EXTREMITIES: No erythema, no tenderness LABORATORY DATA: Please see below. VTE Prophylaxis ordered?: DISCHARGE CONDITION: Medically Stable. DISPOSITION: . Discharged to inpatient mental health unit ACTIVITY: . As tolerated DIET: . 2 g low sodium diet DISCHARGE PLAN AND INSTRUCTIONS: 1. . Patient to be discharged inpatient mental health care for further psychiatric table addition 2. . Follow-up thereafter with primary care physician in one to 2 weeks TIME SPENT ON DISCHARGE: Greater than 30 minutes. Vital Signs/I&Os Vital Signs Date Time Temp Pulse Resp B/P Pulse Ox O2 Delivery O2 Flow Rate FiO2 01/16/17 16:00 97.8 63 20 165/80 96 Room Air I&O- Last 24 Hours up to 6 AM 01/16/17 05:59 Intake Total 0 ml Output Total 0 ml Balance 0 ml Laboratory Data Labs 24H Laboratory Tests 2 01/16/17 06:40: Blood Urea Nitrogen 8, Creatinine 0.64, Sodium Level 142, Potassium Level 3.4L, Chloride Level 105, Carbon Dioxide Level 24, Calcium Level 8.8, Aspartate Amino Transf (AST/SGOT) 47H, Alanine Aminotransferase (ALT/SGPT) 91H, Alkaline Phosphatase 64, Total Bilirubin 0.9#, Total Protein 6.5, Albumin 3.4#, Albumin/ Globulin Ratio 1.10, Anion Gap 13, White Blood Count 5.8, Red Blood Count 4.20, Hemoglobin 12.8, Hematocrit 37.9, Mean Corpuscular Volume 90.3, Mean Corpuscular Hemoglobin 30.4, Mean Corpuscular Hemoglobin Concent 33.7, Red Cell Distribution Width 11.5, Platelet Count 189, Neutrophils (%) (Auto) 64.2, Lymphocytes (%) (Auto) 27.7, Monocytes (%) (Auto) 4.9, Eosinophils (%) (Auto) 1.2, Basophils (%) (Auto) 0.4, Neutrophils # (Auto) 3.8, Lymphocytes # (Auto) 1.6, Monocytes # (Auto) 0.3, Eosinophils # (Auto) 0.1, Basophils # (Auto) 0.0, Glomerular Filtration Rate > 60.0, Large Unclassified Cells # 0.1, Large Unclassified Cells % 1.6, Magnesium Level 1.8 01/16/17 11:57: Acetaminophen Level < 2.0L CBC/BMP Laboratory Tests 01/16/17 06:40 Calcium Level 8.8, Aspartate Amino Transf (AST/SGOT) 47 H, Alanine Aminotransferase (ALT/SGPT) 91 H, Alkaline Phosphatase 64, Total Bilirubin 0.9 # , Total Protein 6.5, Albumin 3.4 #, Red Blood Count 4.20, Mean Corpuscular Volume 90.3, Mean Corpuscular Hemoglobin 30.4, Mean Corpuscular Hemoglobin Concent 33.7, Red Cell Distribution Width 11.5, Neutrophils (%) (Auto) 64.2, Lymphocytes (%) (Auto) 27.7, Monocytes (%) (Auto) 4.9, Eosinophils (%) (Auto) 1.2, Basophils (%) (Auto) 0.4, Neutrophils # (Auto) 3.8, Lymphocytes # (Auto) 1.6, Monocytes # (Auto) 0.3, Eosinophils # (Auto) 0.1, Basophils # (Auto) 0.0 Medications Scheduled Levothyroxine Sodium (Synthroid) 50 Mcg Tab 50 MCG PO DAILY Metoprolol Tartrate (Metoprolol Tartrate) 25 Mg Tab 25 MG PO BID Omeprazole (Omeprazole) 20 Mg Cap 20 MG PO DAILY Allergies Coded Allergies: Sulfa Antibiotics (Verified Allergy, Intermediate, RASH, 01/15/17) JOSE RAFAEL KELLEY MD Jan 16, 2017 17:45
[2017-01-16] MEDS ORDERED: METO-346 PO (18:24)
[2017-01-16] MEDS ORDERED: PRAV40TA2 PO (18:24)
[2017-01-16] MEDS ORDERED: METO25TAB PO (20:36)
--- NOTE | 2017-01-18 01:07 | EDDOCDS ---
Physician Documentation [facility] Name: Mary Carmen Sands Age: 51 yrs Sex: Female : 1965 Arrival Date: 01/15/2017 Time: 12:55 Bed Admit Hold Private MD: Disposition: 01/15/17 14:59 Hospitalization ordered by Lyudmila Arauz for Inpatient Admission. Preliminary diagnosis is Intentional self-harm by other specified means - overdose. - Bed requested for [facility] (Formerly 3 [facility]). - Status is Inpatient Admission. sls1 - Condition is Stable. - Problem is new. - Symptoms are unchanged. Historical: - Allergies: SULFA (SULFONAMIDES) (Rash); - Home Meds: 1. metoprolol tartrate 50 mg Oral tab 1 tab 2 times per day (Last dose: 01/14/2017) 2. pravastatin oral Unknown oral once daily (Last dose: Unknown) 3. Levothyroxine Unknown Oral once daily (Last dose: 01/14/2017) 4. omeprazole 20 mg Oral cpDR 1 cap once daily (Last dose: 01/14/2017) - PMHx: Hypothyroidism; Hypertension; Hypercholesterolemia; GERD; Diabetes - NIDDM: controlled; - PSHx: D & C; Hysterectomy; Tonsillectomy; Adenoidectomy; left menicus repair; rt thumb; - Social history: Smoking status: Patient states was never smoker of tobacco. No barriers to communication noted, The patient speaks fluent Croatian. - Family history: Not pertinent. - : The pt / caregiver states he / she is not on anticoagulants. Home medication list is obtained from the patient. - Exposure Risk Screening:: None identified. 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 6 in. (167.64 cm) (R); Pain 0/10; 13:11 BP 189 / 110 (auto/); kpj 13:11 Pulse 98 MON; Resp 18; Pulse Ox 95% on R/A; kpj 13:17 BP 174 / 89 (auto/); kpj 13:17 Pulse 90 MON; Resp 18; Pulse Ox 95% on R/A; kpj 13:34 BP 164 / 87 (auto/); kpj 13:34 Pulse 88 MON; Resp 16; Pulse Ox 93% on R/A; kpj 13:49 BP 150 / 89 (auto/); kpj 13:49 Pulse 89 MON; Resp 16; Pulse Ox 93% on R/A; kpj 14:04 BP 175 / 96 (auto/); nn1 14:19 BP 166 / 89 (auto/); nn1 14:19 Pulse 89 MON; Pulse Ox 96% ; nn1 14:33 Pulse 91 MON; Pulse Ox 95% ; jc4 14:34 BP 172 / 96 (auto/); jc4 14:49 BP 170 / 95 (auto/); jc4 14:49 Pulse 90 MON; Pulse Ox 95% ; jc4 15:04 BP 182 / 98 (auto/); jc4 15:05 Pulse 99 MON; Pulse Ox 96% ; jc4 15:11 Pulse 96 MON; Pulse Ox 96% ; jc4 15:12 BP 191 / 102; Pulse 91; Resp 20; Temp 97.9(T); Pulse Ox 95% on R/A; Pain 0/10; jc4 15:12 BP 195 / 102 (auto/); jc4 15:50 BP 207 / 101 (auto/); jc4 15:50 Pulse 90 MON; Pulse Ox 95% ; jc4 16:03 Pulse 90 MON; Pulse Ox 95% ; jc4 16:05 BP 202 / 100 (auto/); jc4 16:20 BP 200 / 104 (auto/); jc4 16:20 Pulse 84 MON; Pulse Ox 94% ; jc4 16:35 BP 175 / 92 (auto/); jc4 16:49 Pulse 74 MON; Pulse Ox 94% ; jc4 16:50 BP 174 / 100 (auto/); jc4 17:05 BP 169 / 101 (auto/); jc4 17:05 Pulse 75 MON; Pulse Ox 94% ; jc4 17:18 Pulse 73 MON; Pulse Ox 95% ; jc4 17:20 BP 184 / 98 (auto/); jc4 17:34 Pulse 75 MON; Pulse Ox 94% ; jc4 17:35 BP 184 / 89 (auto/); jc4 17:50 BP 180 / 89 (auto/); jc4 17:51 Pulse 78 MON; Pulse Ox 92% ; jc4 18:05 BP 178 / 87 (auto/); jc4 18:09 Pulse 76 MON; Pulse Ox 95% ; jc4 18:20 BP 180 / 89 (auto/); nn1 18:20 Pulse 75 MON; Pulse Ox 95% ; nn1 18:35 BP 183 / 90 (auto/); nn1 18:35 Pulse 77 MON; Pulse Ox 94% ; nn1 18:50 BP 174 / 91 (auto/); nn1 18:50 Pulse 71 MON; Pulse Ox 95% ; nn1 19:05 BP 193 / 87 (auto/); nn1 19:05 Pulse 75 MON; Pulse Ox 95% ; nn1 19:20 BP 230 / 106 (auto/); nn1 19:20 Pulse 87 MON; nn1 19:21 BP 213 / 102 (auto/); nn1 19:21 Pulse 80 MON; Pulse Ox 94% ; nn1 19:35 BP 202 / 92 (auto/); nn1 19:35 Pulse 75 MON; Pulse Ox 95% ; nn1 19:50 BP 186 / 90 (auto/); nn1 19:50 Pulse 72 MON; Pulse Ox 95% ; nn1 20:00 Resp 20; nn1 20:05 BP 198 / 97 (auto/); nn1 20:05 Pulse 80 MON; Pulse Ox 95% ; nn1 20:20 BP 204 / 101 (auto/); nn1 20:20 Pulse 73 MON; Pulse Ox 94% ; nn1 20:35 BP 184 / 84 (auto/); nn1 20:35 Pulse 71 MON; Pulse Ox 93% ; nn1 20:50 BP 203 / 96 (auto/); nn1 20:50 Pulse 75 MON; Pulse Ox 95% ; nn1 21:05 BP 189 / 88 (auto/); nn1 21:05 Pulse 73 MON; Pulse Ox 95% ; nn1 21:20 BP 189 / 93 (auto/); nn1 21:20 Pulse 72 MON; Pulse Ox 96% ; nn1 21:35 BP 199 / 95 (auto/); nn1 21:35 Pulse 74 MON; Pulse Ox 93% ; nn1 21:50 BP 189 / 86 (auto/); nn1 21:50 Pulse 66 MON; Pulse Ox 94% ; nn1 21:58 Resp 20; Temp 98.2(O); nn1 22:05 BP 175 / 84 (auto/); nn1 22:05 Pulse 65 MON; Pulse Ox 94% ; nn1 22:20 BP 159 / 84 (auto/); nn1 22:20 Pulse 62 MON; Pulse Ox 94% ; nn1 22:35 BP 153 / 82 (auto/); nn1 22:35 Pulse 62 MON; Pulse Ox 94% ; nn1 23:05 BP 171 / 81 (auto/); nn1 23:05 Pulse 63 MON; Pulse Ox 96% ; nn1 23:20 BP 169 / 85 (auto/); nn1 23:20 Pulse 62 MON; Pulse Ox 97% ; nn1 23:35 BP 154 / 84 (auto/); nn1 23:35 Pulse 60 MON; Pulse Ox 96% ; nn1 23:50 BP 154 / 86 (auto/); nn1 23:50 Pulse 62 MON; Pulse Ox 97% ; nn1 23:50 Resp 18; Temp 98.2(TE); Pulse Ox 96% on R/A; nn1 23:50 Pain 0/10; nn1 13:03 Body Mass Index 26.63 (74.84 kg, 167.64 cm) nb2 MDM: 13:15 Consult PFS/PSA/Integrity Analyst ordered. sd1 13:15 Consult PFS/PSA/Integrity Analyst: Patient's case requires discussion with on-call sd1 Psychiatrist ordered. 13:15 PSA/PFS to call Nursing Operations Lieutenant, to enter patient data [place] if patient sd1 involuntarily admitted or transferred for SI or HI ordered. 13:15 Co Director/Pulse Ox/q 15 min VS ordered. sd1 13:15 Confirm accurate psychiatric medication list and times of last dosage ordered. sd1 13:15 Detain Pt Until Medically/PFS Cleared ordered. sd1 13:15 IV Saline Lock ordered. sd1 13:15 Rhythm Strip to chart ordered. sd1 13:15 NS 0.9% 1000 ml IV at 250 mL/hr continuous ordered. sd1 13:16 Acetaminophen Level Ordered. EDMS 13:16 Basic Metabolic Profile Ordered. EDMS 13:16 Complete Blood Count Ordered. EDMS 13:16 Drug Eval Toxicology ED Only Ordered. EDMS 13:16 Ethyl Alcohol (ethanol) Ordered. EDMS 13:16 Liver Profile Ordered. EDMS 13:16 Salicylate Level Ordered. EDMS 13:16 Thyroid Stimulating Hormone Ordered. EDMS 13:16 ECG WITH READING ER PHYS+CARDIAG ordered. EDMS 13:19 Acetylcysteine (1st Step) 150mg/kg 150 mg/kg IVPB once over 60 mins; mix in 250mL of sd1 D5W- 11 grams IV ordered. 13:31 PT/INR Ordered. EDMS 14:27 Ondansetron 4 mg IVP once ordered. sd1 14:27 Acetaminophen Level Reviewed. sd1 14:27 Basic Metabolic Profile Reviewed. sd1 14:27 Ethyl Alcohol (ethanol) Reviewed. sd1 14:27 Liver Profile Reviewed. sd1 14:27 Salicylate Level Reviewed. sd1 14:27 Complete Blood Count Reviewed. sd1 14:27 Thyroid Stimulating Hormone Reviewed. sd1 14:27 PT/INR Reviewed. sd1 14:31 Acetylcysteine (2nd Step) 50mg/kg 50 mg/kg IVPB once over 4 hrs; mix in 500mL of D5W; sd1 3700mg IV ordered. 14:31 Acetylcysteine (3rd Step) 100mg/kg 100 mg/kg IVPB once over 16 hrs; mix in 1000mL of sd1 D5W; 7400mg IV ordered. 14:31 BED REQUEST+ADM ordered. EDMS 15:06 Financial registration complete. [id number] 15:24 Oxazepam 30 mg PO once ordered. sd1 15:27 [facility] Payment Agreement was scanned into [employer] and attached to record. ks16 15:30 Metoprolol (Tartrate) 50 mg PO once ordered. jc4 16:32 Metoprolol 5 mg IVP once; Hold for SBP < 100 or HR < 60. ordered. jc4 16:32 LORazepam 1 mg IVP once ordered. jc4 16:47 Admission / Observation Status ordered. EDMS 16:47 NPO DIET ordered. EDMS 19:03 Consult PFS/PSA/Integrity Analyst complete. cl 19:03 Consult PFS/PSA/Integrity Analyst: Patient's case requires discussion with on-call cl Psychiatrist complete. 19:03 PSA/PFS to call Nursing Operations Lieutenant, to enter [place] data [place] if patient cl involuntarily admitted or transferred for SI or HI complete. 19:39 Metoprolol (Tartrate) 50 mg PO once ordered. nn1 19:39 Oxazepam 30 mg PO once ordered. nn1 19:50 Written Provider Order was scanned into [employer] and attached to record. kb5 21:15 ELECTROCARDIOGRAM ADULT ordered. EDMS 21:16 CBC WITH DIFFERENTIAL Ordered. EDMS 21:16 COMPLETE COMPHRENSIVE METABOLI Ordered. EDMS 21:16 MAGNESIUM LEVEL Ordered. EDMS 01/16 11:18 T-Sheet-- Draft Copy was scanned into [employer] and attached to record. gb 11:19 ECG/EKG was scanned into [employer] and attached to record. gb Administered Medications: 01/15 13:47 Drug: NS 0.9% 1000 ml [sodium chloride 0.9 % intravenous solution] Route: IV; Rate: 250 kpj mL/hr; Site: right forearm; 14:20 Drug: Acetylcysteine (1st Step) 150mg/kg 45769 mg [acetylcysteine 200 mg/mL (20 %) kpj intravenous solution] Route: IVPB; Infused Over: 60 mins; Site: right forearm; 15:28 Follow up: IV Status: Completed infusion; IV Intake: 250ml jc4 14:35 Drug: Ondansetron 4 mg [ondansetron HCl 2 mg/mL intravenous solution (2 mL)] Route: kpj IVP; Site: right forearm; 15:28 Drug: Acetylcysteine (2nd Step) 50mg/kg 3742 mg [acetylcysteine 200 mg/mL (20 %) jc4 intravenous solution] Route: IVPB; Infused Over: 4 hrs; Site: right forearm; 19:57 Follow up: IV Status: Completed infusion; IV Intake: 500ml nn1 15:34 Drug: Oxazepam 30 mg [oxazepam 15 mg capsule (2 caps)] Route: PO; jc4 15:34 Drug: Metoprolol 50 mg [metoprolol tartrate 50 mg tablet (1 tabs)] Route: PO; jc4 16:25 Drug: LORazepam 1 mg [lorazepam 2 mg/mL injection solution (0.5 mL)] Route: IVP; Site: jc4 right forearm; 16:27 Drug: Metoprolol 5 mg [metoprolol 5 mg/5 mL intravenous solution (5 mL)] Route: IVP; jc4 Site: right forearm; 19:56 Drug: Acetylcysteine (3rd Step) 100mg/kg 7484 mg [acetylcysteine 200 mg/mL (20 %) nn1 intravenous solution] Route: IVPB; Infused Over: 16 hrs; Site: right wrist; 23:50 Follow up: IV Status: Infusion continued upon admit nn1 19:56 Drug: Metoprolol 50 mg [metoprolol tartrate 50 mg tablet (1 tabs)] Route: PO; nn1 19:56 Drug: Oxazepam 30 mg [oxazepam 15 mg capsule (2 caps)] Route: PO; nn1 Signatures: Dispatcher [employer] EDMS Kayla Pedro MD MD sd1 Liliya Mccrary, RN RN kpj Shant Rees, BRIAN PSA cl Kay Maya, Reg Reg gb Santino Guthrie, SLEEVER SLEEVER kb5 Anjali Luu RN RN jc4 Lo James RN RN sls1 Miladis Ross,RN RN nn1 Farhana Bautista, Reg Reg ks16 The chart was reviewed and I authenticate all verbal orders and agree with the evaluation and treatment provided.Attachments: 15:27 [facility] Payment Agreement [email or web address] 19:50 Written Provider Order kb5 01/16 11:18 T-Sheet-- Draft Copy gb 11:19 ECG/EKG gb Chart Complete MTDD
--- NOTE | 2017-01-18 01:07 | EDDOCDS ---
Physician Documentation [facility] Name: Mary Carmen Sands Age: 51 yrs Sex: Female : 1965 Arrival Date: 01/15/2017 Time: 12:55 Bed Admit Hold Private MD: Disposition: 01/15/17 14:59 Hospitalization ordered by Lyudmila Arauz for Inpatient Admission. Preliminary diagnosis is Intentional self-harm by other specified means - overdose. - Bed requested for [facility] [place] (Formerly 3 [facility]). - Status is Inpatient Admission. sls1 - Condition is Stable. - Problem is new. - Symptoms are unchanged. Historical: - Allergies: SULFA (SULFONAMIDES) (Rash); - Home Meds: 1. metoprolol tartrate 50 mg Oral tab 1 tab 2 times per day (Last dose: 01/14/2017) 2. pravastatin oral Unknown oral once daily (Last dose: Unknown) 3. Levothyroxine Unknown Oral once daily (Last dose: 01/14/2017) 4. omeprazole 20 mg Oral cpDR 1 cap once daily (Last dose: 01/14/2017) - PMHx: Hypothyroidism; Hypertension; Hypercholesterolemia; GERD; Diabetes - NIDDM: controlled; - PSHx: D & C; Hysterectomy; Tonsillectomy; Adenoidectomy; left menicus repair; rt thumb; - Social history: Smoking status: Patient states was never smoker of tobacco. No barriers to communication noted, The patient speaks fluent Slovenian. - Family history: Not pertinent. - : The pt / caregiver states he / she is not on anticoagulants. Home medication list is obtained from the patient. - Exposure Risk Screening:: None identified. 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 6 in. (167.64 cm) (R); Pain 0/10; 13:11 BP 189 / 110 (auto/); kpj 13:11 Pulse 98 MON; Resp 18; Pulse Ox 95% on R/A; kpj 13:17 BP 174 / 89 (auto/); kpj 13:17 Pulse 90 MON; Resp 18; Pulse Ox 95% on R/A; kpj 13:34 BP 164 / 87 (auto/); kpj 13:34 Pulse 88 MON; Resp 16; Pulse Ox 93% on R/A; kpj 13:49 BP 150 / 89 (auto/); kpj 13:49 Pulse 89 MON; Resp 16; Pulse Ox 93% on R/A; kpj 14:04 BP 175 / 96 (auto/); nn1 14:19 BP 166 / 89 (auto/); nn1 14:19 Pulse 89 MON; Pulse Ox 96% ; nn1 14:33 Pulse 91 MON; Pulse Ox 95% ; jc4 14:34 BP 172 / 96 (auto/); jc4 14:49 BP 170 / 95 (auto/); jc4 14:49 Pulse 90 MON; Pulse Ox 95% ; jc4 15:04 BP 182 / 98 (auto/); jc4 15:05 Pulse 99 MON; Pulse Ox 96% ; jc4 15:11 Pulse 96 MON; Pulse Ox 96% ; jc4 15:12 BP 191 / 102; Pulse 91; Resp 20; Temp 97.9(T); Pulse Ox 95% on R/A; Pain 0/10; jc4 15:12 BP 195 / 102 (auto/); jc4 15:50 BP 207 / 101 (auto/); jc4 15:50 Pulse 90 MON; Pulse Ox 95% ; jc4 16:03 Pulse 90 MON; Pulse Ox 95% ; jc4 16:05 BP 202 / 100 (auto/); jc4 16:20 BP 200 / 104 (auto/); jc4 16:20 Pulse 84 MON; Pulse Ox 94% ; jc4 16:35 BP 175 / 92 (auto/); jc4 16:49 Pulse 74 MON; Pulse Ox 94% ; jc4 16:50 BP 174 / 100 (auto/); jc4 17:05 BP 169 / 101 (auto/); jc4 17:05 Pulse 75 MON; Pulse Ox 94% ; jc4 17:18 Pulse 73 MON; Pulse Ox 95% ; jc4 17:20 BP 184 / 98 (auto/); jc4 17:34 Pulse 75 MON; Pulse Ox 94% ; jc4 17:35 BP 184 / 89 (auto/); jc4 17:50 BP 180 / 89 (auto/); jc4 17:51 Pulse 78 MON; Pulse Ox 92% ; jc4 18:05 BP 178 / 87 (auto/); jc4 18:09 Pulse 76 MON; Pulse Ox 95% ; jc4 18:20 BP 180 / 89 (auto/); nn1 18:20 Pulse 75 MON; Pulse Ox 95% ; nn1 18:35 BP 183 / 90 (auto/); nn1 18:35 Pulse 77 MON; Pulse Ox 94% ; nn1 18:50 BP 174 / 91 (auto/); nn1 18:50 Pulse 71 MON; Pulse Ox 95% ; nn1 19:05 BP 193 / 87 (auto/); nn1 19:05 Pulse 75 MON; Pulse Ox 95% ; nn1 19:20 BP 230 / 106 (auto/); nn1 19:20 Pulse 87 MON; nn1 19:21 BP 213 / 102 (auto/); nn1 19:21 Pulse 80 MON; Pulse Ox 94% ; nn1 19:35 BP 202 / 92 (auto/); nn1 19:35 Pulse 75 MON; Pulse Ox 95% ; nn1 19:50 BP 186 / 90 (auto/); nn1 19:50 Pulse 72 MON; Pulse Ox 95% ; nn1 20:00 Resp 20; nn1 20:05 BP 198 / 97 (auto/); nn1 20:05 Pulse 80 MON; Pulse Ox 95% ; nn1 20:20 BP 204 / 101 (auto/); nn1 20:20 Pulse 73 MON; Pulse Ox 94% ; nn1 20:35 BP 184 / 84 (auto/); nn1 20:35 Pulse 71 MON; Pulse Ox 93% ; nn1 20:50 BP 203 / 96 (auto/); nn1 20:50 Pulse 75 MON; Pulse Ox 95% ; nn1 21:05 BP 189 / 88 (auto/); nn1 21:05 Pulse 73 MON; Pulse Ox 95% ; nn1 21:20 BP 189 / 93 (auto/); nn1 21:20 Pulse 72 MON; Pulse Ox 96% ; nn1 21:35 BP 199 / 95 (auto/); nn1 21:35 Pulse 74 MON; Pulse Ox 93% ; nn1 21:50 BP 189 / 86 (auto/); nn1 21:50 Pulse 66 MON; Pulse Ox 94% ; nn1 21:58 Resp 20; Temp 98.2(O); nn1 22:05 BP 175 / 84 (auto/); nn1 22:05 Pulse 65 MON; Pulse Ox 94% ; nn1 22:20 BP 159 / 84 (auto/); nn1 22:20 Pulse 62 MON; Pulse Ox 94% ; nn1 22:35 BP 153 / 82 (auto/); nn1 22:35 Pulse 62 MON; Pulse Ox 94% ; nn1 23:05 BP 171 / 81 (auto/); nn1 23:05 Pulse 63 MON; Pulse Ox 96% ; nn1 23:20 BP 169 / 85 (auto/); nn1 23:20 Pulse 62 MON; Pulse Ox 97% ; nn1 23:35 BP 154 / 84 (auto/); nn1 23:35 Pulse 60 MON; Pulse Ox 96% ; nn1 23:50 BP 154 / 86 (auto/); nn1 23:50 Pulse 62 MON; Pulse Ox 97% ; nn1 23:50 Resp 18; Temp 98.2(TE); Pulse Ox 96% on R/A; nn1 23:50 Pain 0/10; nn1 13:03 Body Mass Index 26.63 (74.84 kg, 167.64 cm) nb2 MDM: 13:15 Consult PFS/PSA/Press Setter ordered. sd1 13:15 Consult PFS/PSA/Press Setter: Patient's case requires discussion with on-call sd1 Psychiatrist ordered. 13:15 PSA/PFS to call Nursing Personal Injury Litigation Paralegal, to enter [place] data [place] if patient sd1 involuntarily admitted or transferred for SI or HI ordered. 13:15 Final Tester/Pulse Ox/q 15 min VS ordered. sd1 13:15 Confirm accurate psychiatric medication list and times of last dosage ordered. sd1 13:15 Detain Pt Until Medically/PFS Cleared ordered. sd1 13:15 IV Saline Lock ordered. sd1 13:15 Rhythm Strip to chart ordered. sd1 13:15 NS 0.9% 1000 ml IV at 250 mL/hr continuous ordered. sd1 13:16 Acetaminophen Level Ordered. EDMS 13:16 Basic Metabolic Profile Ordered. EDMS 13:16 Complete Blood Count Ordered. EDMS 13:16 Drug Eval Toxicology ED Only Ordered. EDMS 13:16 Ethyl Alcohol (ethanol) Ordered. EDMS 13:16 Liver Profile Ordered. EDMS 13:16 Salicylate Level Ordered. EDMS 13:16 Thyroid Stimulating Hormone Ordered. EDMS 13:16 ECG WITH READING ER PHYS+CARDIAG ordered. EDMS 13:19 Acetylcysteine (1st Step) 150mg/kg 150 mg/kg IVPB once over 60 mins; mix in 250mL of sd1 D5W- 11 grams IV ordered. 13:31 PT/INR Ordered. EDMS 14:27 Ondansetron 4 mg IVP once ordered. sd1 14:27 Acetaminophen Level Reviewed. sd1 14:27 Basic Metabolic Profile Reviewed. sd1 14:27 Ethyl Alcohol (ethanol) Reviewed. sd1 14:27 Liver Profile Reviewed. sd1 14:27 Salicylate Level Reviewed. sd1 14:27 Complete Blood Count Reviewed. sd1 14:27 Thyroid Stimulating Hormone Reviewed. sd1 14:27 PT/INR Reviewed. sd1 14:31 Acetylcysteine (2nd Step) 50mg/kg 50 mg/kg IVPB once over 4 hrs; mix in 500mL of D5W; sd1 3700mg IV ordered. 14:31 Acetylcysteine (3rd Step) 100mg/kg 100 mg/kg IVPB once over 16 hrs; mix in 1000mL of sd1 D5W; 7400mg IV ordered. 14:31 BED REQUEST+ADM ordered. EDMS 15:06 Financial registration complete. [email or web address] 15:24 Oxazepam 30 mg PO once ordered. sd1 15:27 [facility] [place] Agreement was scanned into [employer] and attached to record. ks16 15:30 Metoprolol (Tartrate) 50 mg PO once ordered. jc4 16:32 Metoprolol 5 mg IVP once; Hold for SBP < 100 or HR < 60. ordered. jc4 16:32 LORazepam 1 mg IVP once ordered. jc4 16:47 Admission / Observation Status ordered. EDMS 16:47 NPO DIET ordered. EDMS 19:03 Consult PFS/PSA/Press Setter complete. cl 19:03 Consult PFS/PSA/Press Setter: Patient's case requires discussion with on-call cl Psychiatrist complete. 19:03 PSA/PFS to call Nursing Personal Injury Litigation Paralegal, to enter [place] data [place] if patient cl involuntarily admitted or transferred for SI or HI complete. 19:39 Metoprolol (Tartrate) 50 mg PO once ordered. nn1 19:39 Oxazepam 30 mg PO once ordered. nn1 19:50 Written Provider Order was scanned into [employer] and attached to record. kb5 21:15 ELECTROCARDIOGRAM ADULT ordered. EDMS 21:16 CBC WITH DIFFERENTIAL Ordered. EDMS 21:16 COMPLETE COMPHRENSIVE METABOLI Ordered. EDMS 21:16 MAGNESIUM LEVEL Ordered. EDMS 01/16 11:18 T-Sheet-- Draft Copy was scanned into [employer] and attached to record. gb 11:19 ECG/EKG was scanned into [employer] and attached to record. gb Administered Medications: 01/15 13:47 Drug: NS 0.9% 1000 ml [sodium chloride 0.9 % intravenous solution] Route: IV; Rate: 250 kpj mL/hr; Site: right forearm; 14:20 Drug: Acetylcysteine (1st Step) 150mg/kg 32405 mg [acetylcysteine 200 mg/mL (20 %) kpj intravenous solution] Route: IVPB; Infused Over: 60 mins; Site: right forearm; 15:28 Follow up: IV Status: Completed infusion; IV Intake: 250ml jc4 14:35 Drug: Ondansetron 4 mg [ondansetron HCl 2 mg/mL intravenous solution (2 mL)] Route: kpj IVP; Site: right forearm; 15:28 Drug: Acetylcysteine (2nd Step) 50mg/kg 3742 mg [acetylcysteine 200 mg/mL (20 %) jc4 intravenous solution] Route: IVPB; Infused Over: 4 hrs; Site: right forearm; 19:57 Follow up: IV Status: Completed infusion; IV Intake: 500ml nn1 15:34 Drug: Oxazepam 30 mg [oxazepam 15 mg capsule (2 caps)] Route: PO; jc4 15:34 Drug: Metoprolol 50 mg [metoprolol tartrate 50 mg tablet (1 tabs)] Route: PO; jc4 16:25 Drug: LORazepam 1 mg [lorazepam 2 mg/mL injection solution (0.5 mL)] Route: IVP; Site: jc4 right forearm; 16:27 Drug: Metoprolol 5 mg [metoprolol 5 mg/5 mL intravenous solution (5 mL)] Route: IVP; jc4 Site: right forearm; 19:56 Drug: Acetylcysteine (3rd Step) 100mg/kg 7484 mg [acetylcysteine 200 mg/mL (20 %) nn1 intravenous solution] Route: IVPB; Infused Over: 16 hrs; Site: right wrist; 23:50 Follow up: IV Status: Infusion continued upon admit nn1 19:56 Drug: Metoprolol 50 mg [metoprolol tartrate 50 mg tablet (1 tabs)] Route: PO; nn1 19:56 Drug: Oxazepam 30 mg [oxazepam 15 mg capsule (2 caps)] Route: PO; nn1 Signatures: Dispatcher [employer] EDMS Kayla Pedro MD MD sd1 Liliya Mccrary, RN RN kpj Shant Rees, BRIAN PSA cl Kay Maya, Reg Reg gb Santino Guthrie, SPARE HAND SPARE HAND kb5 Anjali Luu RN RN jc4 Lo James RN RN sls1 Miladis Ross,RN RN nn1 Farhana Bautista, Reg Reg [id number] The chart was reviewed and I authenticate all verbal orders and agree with the evaluation and treatment provided.Attachments: 15:27 [facility] Payment Agreement [email or web address] 19:50 Written Provider Order kb5 01/16 11:18 T-Sheet-- Draft Copy gb 11:19 ECG/EKG gb Chart Complete MTDD
--- NOTE | 2017-01-18 01:07 | EDDOCDS ---
Nurse's Notes [facility] Name: Mary Carmen Sands Age: 51 yrs Sex: Female : 1965 Arrival Date: 01/15/2017 Time: 12:55 Bed Admit Hold Private MD: Diagnosis: Intentional self-harm by other specified means-overdose Presentation: 01/15 13:07 Presenting complaint: Patient states: depressed and was trying to kill self by drinking [facility] wine and took unknown quantity of percocet at 0500. thinks it was a full bottle Pt's boss called [employer] to check the welfare, pt did not answer the door so they climbed through a window and found pt on her bed . EMS were called pt trans[ported to the hospital. Vomited at 1200. Adult Sepsis Screening: The patient does not have new or worsening altered mentation. Patient's respiratory rate is less than 22. Systolic blood pressure is greater than 100. Patient has a qSOFA score of 0- Negative Sepsis Screen. Suicide/Homicide risk assessment- The patient admits to and/or has been reported to be having suicidal ideations. The patient reports that he/she has not been admitted to an inpatient mental health facility in the last 30 days. The patient reports that he/she has a recent or current history of substance abuse. The patient reports that he/she has a prior history of suicide attempt and/or organized plan. The patient reports that he/she has experienced a significant life altering event in the last 30 days. The patient reports that he/she has adequate social support. The patient reports he/she has no significant chronic medical condition(s). 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 Transition of care: patient was not received from another setting of care. 13:07 Acuity: AFSHAN Level 2 [facility] 13:07 Method Of Arrival: Ambulance [facility] Triage Assessment: 13:18 General: Appears comfortable, well nourished, Behavior is crying, flat. Pain: Denies [facility] pain. Pt Declines HIV testing. The patient is triaged at the bedside. See Assessment in Nurses Notes section of ED record. 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 metoprolol tartrate 50 mg Oral tab 1 tab 2 times per day (Last dose: 01/14/2017) 2. pravastatin oral Unknown oral once daily (Last dose: Unknown) 3. Levothyroxine Unknown Oral once daily (Last dose: 01/14/2017) 4. omeprazole 20 mg Oral cpDR 1 cap once daily (Last dose: 01/14/2017) - PMHx: Hypothyroidism; Hypertension; Hypercholesterolemia; GERD; Diabetes - NIDDM: controlled; - PSHx: D & C; Hysterectomy; Tonsillectomy; Adenoidectomy; left menicus repair; rt thumb; - Social history: Smoking status: Patient states was never smoker of tobacco. No barriers to communication noted, The patient speaks fluent [place]. - Family history: Not pertinent. - : The pt / caregiver states he / she is not on anticoagulants. Home medication list is obtained from the patient. - Exposure Risk Screening:: None identified. Screenin:08 Screening information is obtained from the patient. Fall risk: No risks identified. kpj Assistance ADL's: requires no assistance with activities of daily living. Abuse/DV Screen: The patient / caregiver reports he/she is: not in a situation that causes fear, pain or injury. Nutritional screening: No deficits noted. Advance Directives: Currently, there is no health care proxy. There is no active DNR order. There is no living will. There is no Power of Unit Secy. Advance directive information has not previously been placed in an [facility] medical record. Further advance directive information is declined. home support is adequate. Assessment: 13:50 General: Appears comfortable, well nourished, Behavior is crying, flat. Pain: Denies kpj pain. Neurological: Level of Consciousness is lethargic, obeys commands, Oriented to person, place, time, Speech is normal, Pupils are PERRLA. EENT: Oral mucosa is dry. Cardiovascular: Capillary refill < 3 seconds in bilateral fingers toes Edema is absent. Pulses are all present. Rhythm is sinus rhythm No ectopy. Chest pain is denied. 13:50 Respiratory: Airway is patent Respiratory effort is even, unlabored, Respiratory kpj pattern is regular, symmetrical, Breath sounds are clear bilaterally. GI: Abdomen is non- distended Bowel sounds hypoactive in right upper quadrant, left upper quadrant, right lower quadrant and left lower quadrant Abd is soft and non tender X 4 quads. Reports vomited x 1 at 1200, unsure if there were any pill fragments in emesis. Derm: Skin is pink, warm & dry. Musculoskeletal: No deficits noted. 13:50 General: states feels like a prisoner in her home a family of skunks living under her [facility] house spraying every night and keeping her awake at night. idon't want to live anymore, ''i don't want any help''.. 14:08 General: Appears comfortable, Behavior is cooperative, avoids eye contact. Pain: Denies [facility] pain. Neurological: Pupils are PERRLA, sleepy but arouses easily.. Cardiovascular: Rhythm is sinus rhythm No ectopy. Respiratory: Airway is patent Respiratory effort is even, unlabored, Respiratory pattern is regular, symmetrical. Derm: Skin is pink, warm & dry. 14:30 General: vomited 100 cc liquid. [facility] 14:50 Reassessment: Patient appears in no apparent distress at this time. resting quietly on [facility] stretcher, no further emesis. monitor NSR without ectopy, IV patent , loading dose of acetylcysteine infusing per orders.resp. full and easy. Remains in constant view of ED staff.. 15:35 General: Appears in no apparent distress, Behavior is flat. Pain: Denies pain. jc4 Neurological: Level of Consciousness is awake, alert. Cardiovascular: Rhythm is sinus rhythm No ectopy. Respiratory: Airway is patent Respiratory effort is even, unlabored, Respiratory pattern is regular, symmetrical. GI: other patient vomited immediately following taking medications. 2 Serax capsules noted in emesis bag. Dr. Pedro notified. Derm: Skin is pink, warm & dry. 15:55 General: Dr. Arauz in to examine patient. jc4 16:33 General: Pt resting on stretcher. Affect flat. Color pink, skin warm and dry. jc4 Respirations easy and full. 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 IVF infusing well. Side rails up. No distress noted at this time. 17:23 General: Appears in no apparent distress, Pt lying on stretcher with eyes closed. Color jc4 pink, skin warm and dry. Respirations easy and full. 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 IV infusing well, site clear. 18:09 General: Pt resting with eyes closed. Respirations easy and full. refiner operator - jc4 sinus rhythm without ectopy. 19:57 General: Appears in no apparent distress, comfortable, Behavior is cooperative, flat, nn1 Patient assisted to bedside commode, once patient back in bed blood pressure increased. Dr. Arauz consulted, patient medicated per orders. Patient tolerated oral medication well, denies nausea at this time. . Pain: Denies pain. Neurological: Level of Consciousness is awake, alert, obeys commands, Oriented to person, place, time, Moves all extremities. Speech is normal. Respiratory: Airway is patent Respiratory effort is even, unlabored, Respiratory pattern is regular, symmetrical. Derm: Skin is pink, warm & dry. 20:47 General: Family here to see patient, patient approved of seeing family at this time. . nn1 21:29 General: Family at bedside at this time. Patient tearful. Sitter monitoring patient. . nn1 22:30 General: SBAR sent to [facility]. . Neurological: Level of Consciousness is awake, alert, nn1 obeys commands, Oriented to person, place, time. Respiratory: Airway is patent Respiratory effort is even, unlabored, Respiratory pattern is regular, symmetrical. Derm: Skin is pink, warm & dry. 23:14 General: Hospitalist approved of patient having cell phone, patient given phone. nn1 Patient has been calm, reports no complaints at this time. Patient aware of plan of care at this time.. 23:49 General: Appears in no apparent distress, comfortable, Behavior is appropriate for age, nn1 cooperative. Pain: Denies pain. Neurological: Level of Consciousness is awake, alert, obeys commands, Oriented to person, place, time. Respiratory: Airway is patent Respiratory effort is even, unlabored, Respiratory pattern is regular, symmetrical. Derm: Skin is pink, warm & dry. Overdose: 13:50 MH Triage: Level 2: The patient displays suicidal ideations. Patient took unknown [facility] quantity percocet 3/325 at 0500 and was drinking wine. Overdose occurred 8-10 hours ago. Vital Signs: 13:00 BP 208 / 92 (auto/); kpj 13:01 Pulse 113 MON; Resp 18; Pulse Ox 95% on R/A; kpj 13:03 BP 208 / 92; Pulse 108; Resp 20; Temp 96.9(TE); Pulse Ox 95% on R/A; Weight 74.84 kg nb2 (R); Height 5 ft. 6 in. (167.64 cm) (R); Pain 0/10; 13:11 BP 189 / 110 (auto/); kpj 13:11 Pulse 98 MON; Resp 18; Pulse Ox 95% on R/A; kpj 13:17 BP 174 / 89 (auto/); kpj 13:17 Pulse 90 MON; Resp 18; Pulse Ox 95% on R/A; kpj 13:34 BP 164 / 87 (auto/); kpj 13:34 Pulse 88 MON; Resp 16; Pulse Ox 93% on R/A; kpj 13:49 BP 150 / 89 (auto/); kpj 13:49 Pulse 89 MON; Resp 16; Pulse Ox 93% on R/A; kpj 14:04 BP 175 / 96 (auto/); nn1 14:19 BP 166 / 89 (auto/); nn1 14:19 Pulse 89 MON; Pulse Ox 96% ; nn1 14:33 Pulse 91 MON; Pulse Ox 95% ; jc4 14:34 BP 172 / 96 (auto/); jc4 14:49 BP 170 / 95 (auto/); jc4 14:49 Pulse 90 MON; Pulse Ox 95% ; jc4 15:04 BP 182 / 98 (auto/); jc4 15:05 Pulse 99 MON; Pulse Ox 96% ; jc4 15:11 Pulse 96 MON; Pulse Ox 96% ; jc4 15:12 BP 191 / 102; Pulse 91; Resp 20; Temp 97.9(T); Pulse Ox 95% on R/A; Pain 0/10; jc4 15:12 BP 195 / 102 (auto/); jc4 15:50 BP 207 / 101 (auto/); jc4 15:50 Pulse 90 MON; Pulse Ox 95% ; jc4 16:03 Pulse 90 MON; Pulse Ox 95% ; jc4 16:05 BP 202 / 100 (auto/); jc4 16:20 BP 200 / 104 (auto/); jc4 16:20 Pulse 84 MON; Pulse Ox 94% ; jc4 16:35 BP 175 / 92 (auto/); jc4 16:49 Pulse 74 MON; Pulse Ox 94% ; jc4 16:50 BP 174 / 100 (auto/); jc4 17:05 BP 169 / 101 (auto/); jc4 17:05 Pulse 75 MON; Pulse Ox 94% ; jc4 17:18 Pulse 73 MON; Pulse Ox 95% ; jc4 17:20 BP 184 / 98 (auto/); jc4 17:34 Pulse 75 MON; Pulse Ox 94% ; jc4 17:35 BP 184 / 89 (auto/); jc4 17:50 BP 180 / 89 (auto/); jc4 17:51 Pulse 78 MON; Pulse Ox 92% ; jc4 18:05 BP 178 / 87 (auto/); jc4 18:09 Pulse 76 MON; Pulse Ox 95% ; jc4 18:20 BP 180 / 89 (auto/); nn1 18:20 Pulse 75 MON; Pulse Ox 95% ; nn1 18:35 BP 183 / 90 (auto/); nn1 18:35 Pulse 77 MON; Pulse Ox 94% ; nn1 18:50 BP 174 / 91 (auto/); nn1 18:50 Pulse 71 MON; Pulse Ox 95% ; nn1 19:05 BP 193 / 87 (auto/); nn1 19:05 Pulse 75 MON; Pulse Ox 95% ; nn1 19:20 BP 230 / 106 (auto/); nn1 19:20 Pulse 87 MON; nn1 19:21 BP 213 / 102 (auto/); nn1 19:21 Pulse 80 MON; Pulse Ox 94% ; nn1 19:35 BP 202 / 92 (auto/); nn1 19:35 Pulse 75 MON; Pulse Ox 95% ; nn1 19:50 BP 186 / 90 (auto/); nn1 19:50 Pulse 72 MON; Pulse Ox 95% ; nn1 20:00 Resp 20; nn1 20:05 BP 198 / 97 (auto/); nn1 20:05 Pulse 80 MON; Pulse Ox 95% ; nn1 20:20 BP 204 / 101 (auto/); nn1 20:20 Pulse 73 MON; Pulse Ox 94% ; nn1 20:35 BP 184 / 84 (auto/); nn1 20:35 Pulse 71 MON; Pulse Ox 93% ; nn1 20:50 BP 203 / 96 (auto/); nn1 20:50 Pulse 75 MON; Pulse Ox 95% ; nn1 21:05 BP 189 / 88 (auto/); nn1 21:05 Pulse 73 MON; Pulse Ox 95% ; nn1 21:20 BP 189 / 93 (auto/); nn1 21:20 Pulse 72 MON; Pulse Ox 96% ; nn1 21:35 BP 199 / 95 (auto/); nn1 21:35 Pulse 74 MON; Pulse Ox 93% ; nn1 21:50 BP 189 / 86 (auto/); nn1 21:50 Pulse 66 MON; Pulse Ox 94% ; nn1 21:58 Resp 20; Temp 98.2(O); nn1 22:05 BP 175 / 84 (auto/); nn1 22:05 Pulse 65 MON; Pulse Ox 94% ; nn1 22:20 BP 159 / 84 (auto/); nn1 22:20 Pulse 62 MON; Pulse Ox 94% ; nn1 22:35 BP 153 / 82 (auto/); nn1 22:35 Pulse 62 MON; Pulse Ox 94% ; nn1 23:05 BP 171 / 81 (auto/); nn1 23:05 Pulse 63 MON; Pulse Ox 96% ; nn1 23:20 BP 169 / 85 (auto/); nn1 23:20 Pulse 62 MON; Pulse Ox 97% ; nn1 23:35 BP 154 / 84 (auto/); nn1 23:35 Pulse 60 MON; Pulse Ox 96% ; nn1 23:50 BP 154 / 86 (auto/); nn1 23:50 Pulse 62 MON; Pulse Ox 97% ; nn1 23:50 Resp 18; Temp 98.2(TE); Pulse Ox 96% on R/A; nn1 23:50 Pain 0/10; nn1 13:03 Body Mass Index 26.63 (74.84 kg, 167.64 cm) nb2 Vitals: 13:03 Log In Time N/A - ambulance arrival. nb2 ED Course: 13:01 Patient visited by Len Williamson PCA. jrd 13:01 Zora Pettit,RN is Primary Nurse. jrd 13:01 Patient moved to Waiting jrd 13:01 Patient moved to 3 jrd 13:03 Placed in gown. Bed in low position. Call light in reach. Side rails up X2. Cardiac nb2 monitor on. Pulse ox on. NIBP on. 13:04 Patient visited by Felipa Pandya. nb2 13:05 Kayla Pedro MD is Attending Physician. sd1 13:07 Patient visited by Kayla Pedro MD. sd1 13:13 Triage Initiated kpj 13:25 EKG done. (by ED staff). Reviewed by Kayla Pedro MD. nb2 13:27 Patient visited by Felipa Pandya. nb2 13:35 Inserted saline lock: 20 gauge in right forearm and blood collected. The patient kpj tolerated the procedure well. 13:39 PT/INR Sent. kpj 13:39 Acetaminophen Level Sent. kpj 13:39 Basic Metabolic Profile Sent. kpj 13:39 Complete Blood Count Sent. kpj 13:39 Ethyl Alcohol (ethanol) Sent. kpj 13:39 Liver Profile Sent. kpj 13:39 Salicylate Level Sent. kpj 13:39 Thyroid Stimulating Hormone Sent. kpj 13:59 Poison Control notified at 13:[address] Wilkins aware of [facility] poison controls recommendations. 14:08 Resting quietly. Awaiting lab results. kpj 14:08 The patient / caregiver is instructed regarding the plan of care and ED course. Diet: [facility] Patient given ice chips. 14:08 IV is patent, is intact, is free of redness or swelling. solution is infusing as [facility] ordered. 14:35 Patient visited by Felipa Pandya. nb2 14:59 Lyudmila Arauz is Hospitalizing Provider. sd1 15:04 Anjali Luu, CYRIL is Primary Nurse. jc4 15:27 [facility] Payment Agreement was scanned into [employer] and attached to record. ks16 17:23 Patient visited by Anjali Luu RN. jc4 19:05 Primary Nurse role handed off by Anjali Luu, CYRIL jc4 19:50 Written Provider Order was scanned into [employer] and attached to record. kb5 20:01 Patient moved to Admit Hold sls1 20:03 Poison Control Poison control called for follow up on patient. Poison control nn1 recommended repeat labs at 1000am tomorrow, 01/16/17. Recommended repeat LFTs, INR, and Tylenol level. Poison control will follow up tomorrow. Provider notified. 23:51 No procedures done that require assistance. nn1 01/16 11:18 T-Sheet-- Draft Copy was scanned into [employer] and attached to record. gb 11:19 ECG/EKG was scanned into [employer] and attached to record. Administered Medications: 01/15 13:47 Drug: NS 0.9% 1000 ml [sodium chloride 0.9 % intravenous solution] Route: IV; Rate: 250 kpj mL/hr; Site: right forearm; 14:20 Drug: Acetylcysteine (1st Step) 150mg/kg 12843 mg [acetylcysteine 200 mg/mL (20 %) kpj intravenous solution] Route: IVPB; Infused Over: 60 mins; Site: right forearm; 15:28 Follow up: IV Status: Completed infusion; IV Intake: 250ml 4 14:35 Drug: Ondansetron 4 mg [ondansetron HCl 2 mg/mL intravenous solution (2 mL)] Route: kpj IVP; Site: right forearm; 15:28 Drug: Acetylcysteine (2nd Step) 50mg/kg 3742 mg [acetylcysteine 200 mg/mL (20 %) 4 intravenous solution] Route: IVPB; Infused Over: 4 hrs; Site: right forearm; 19:57 Follow up: IV Status: Completed infusion; IV Intake: 500ml nn1 15:34 Drug: Oxazepam 30 mg [oxazepam 15 mg capsule (2 caps)] Route: PO; jc4 15:34 Drug: Metoprolol 50 mg [metoprolol tartrate 50 mg tablet (1 tabs)] Route: PO; jc4 16:25 Drug: LORazepam 1 mg [lorazepam 2 mg/mL injection solution (0.5 mL)] Route: IVP; Site: [facility] right forearm; 16:27 Drug: Metoprolol 5 mg [metoprolol 5 mg/5 mL intravenous solution (5 mL)] Route: IVP; 4 Site: right forearm; 19:56 Drug: Acetylcysteine (3rd Step) 100mg/kg 7484 mg [acetylcysteine 200 mg/mL (20 %) [facility] intravenous solution] Route: IVPB; Infused Over: 16 hrs; Site: right wrist; 23:50 Follow up: IV Status: Infusion continued upon admit nn1 19:56 Drug: Metoprolol 50 mg [metoprolol tartrate 50 mg tablet (1 tabs)] Route: PO; nn1 19:56 Drug: Oxazepam 30 mg [oxazepam 15 mg capsule (2 caps)] Route: PO; nn1 Intake: 15:28 IV: 250.00ml; Total: 250.00ml. jc4 18:30 IV: 1000.00ml (NS); Total: 1250.00ml. jc4 19:57 IV: 500.00ml; Total: 1750.00ml. nn1 Order Results: Lab Order: Acetaminophen Level; SPEC'M 01/15/17 13:32 Test: ACETAMINOPHEN LEVEL; Value: 66.1; Range: 10.0-30.0; Abnormal: Above high normal; Units: UG/ML; Status: F Lab Order: Basic Metabolic Profile; SPEC'M 01/15/17 13:32 Test: GLUCOSE, FASTING; Value: 147; Range: 70-105; Abnormal: Above high normal; Units: MG/DL; Status: F Test: BLOOD UREA NITROGEN; Value: 16; Range: 7-18; Units: MG/DL; Status: F Test: CREATININE FOR GFR; Value: 0.68; Range: 0.55-1.02; Units: MG/DL; Status: F Test: GLOMERULAR FILTRATION RATE; Value: > 60.0; Range: >51; Status: F Test: SODIUM LEVEL; Value: 142; Range: 136-145; Units: MEQ/L; Status: F Test: POTASSIUM SERUM; Value: 4.0; Range: 3.5-5.1; Units: MEQ/L; Status: F Test: CHLORIDE LEVEL; Value: 104; Range: 98-107; Units: MEQ/L; Status: F Test: CARBON DIOXIDE LEVEL; Value: 21; Range: 21-32; Units: MEQ/L; Status: F Test: ANION GAP; Value: 17; Range: 8-16; Abnormal: Above high normal; Units: MEQ/L; Status: F Test: CALCIUM LEVEL; Value: 9.0; Range: 8.5-10.1; Units: MG/DL; Status: F Test Note: ; Units are mL/min/1.73 m2 Chronic Kidney Disease Staging per NKF: Stage I & II GFR >=60 Normal to Mildly Decreased Stage III GFR 30-59 Moderately Decreased Stage IV GFR 15-29 Severely Decreased Stage V GFR <15 Very Little GFR Left ESRD GFR <15 on ROUGH RICE GR[employer]ER Lab Order: Complete Blood Count; SPEC'M 01/15/17 13:32 Test: WHITE BLOOD COUNT; Value: 4.1; Range: 4.0-10.0; Units: K/mm3; Status: F Test: RED BLOOD COUNT; Value: 4.35; Range: 4.00-5.40; Units: M/mm3; Status: F Test: HEMOGLOBIN; Value: 14.1; Range: 12.0-16.0; Units: g/dl; Status: F Test: HEMATOCRIT; Value: 40.8; Range: 36.0-47.0; Units: %; Status: F Test: MEAN CORPUSCULAR VOLUME; Value: 93.7; Range: 80.0-96.0; Units: fl; Status: F Test: MEAN CORPUSCULAR HEMOGLOBIN; Value: 32.4; Range: 27.0-33.0; Units: pg; Status: F Test: MEAN CORPUSCULAR HGB CONC; Value: 34.6; Range: 32.0-36.5; Units: g/dl; Status: F Test: RED CELL DISTRIBUTION WIDTH; Value: 11.8; Range: 11.5-14.5; Units: %; Status: F Test: PLATELET COUNT, AUTOMATED; Value: 231; Range: 150-450; Units: k/mm3; Status: F Lab Order: Drug Eval Toxicology ED Only; SPEC'M 01/15/17 15:22 Test: AMPHETAMINES LEVEL URINE; Value: NEGATIVE; Range: NEGATIVE; Status: F Test: BARBITURATES URINE; Value: NEGATIVE; Range: NEGATIVE; Status: F Test: BENZODIAZEPINES URINE; Value: NEGATIVE; Range: NEGATIVE; Status: F Test: CANNABINOIDS URINE; Value: NEGATIVE; Range: NEGATIVE; Status: F Test: COCAINE METABOLITE URINE; Value: NEGATIVE; Range: NEGATIVE; Status: F Test: METHADONE URINE; Value: NEGATIVE; Range: NEGATIVE; Status: F Test: OPIATES URINE; Value: POSITIVE; Range: NEGATIVE; Abnormal: Above high normal; Status: F Test: TRICYCLIC ANTIDEPRESS URINE; Value: NEGATIVE; Range: NEGATIVE; Status: F Test Note: ; ALL PRESUMPTIVE POSITIVE FINDINGS ARE UNCONFIRMED NORMAL VALUES THRESHOLD IN NG/ML AMPHETAMINES 1000 METHAMPHETAMINES 1000 BARBITURATES 300 BENZODIAZEPINES 300 CANNABINOIDS (THC) 50 COCAINE METABOLITE 300 METHADONE 300 OPIATES 300 PHENCYCLIDINE 25 TRICYCLIC ANTIDEPRESSANTS 1000 RESULTS ARE FOR MEDICAL PURPOSES ONLY. ALL URINE SPECIMENS WILL BE SAVED FOR 3 DAYS. IF CONFIRMATION OF A PRESUMPTIVE POSTIVE SCREEN RESULT IS DESIRED, CALL CHEMISTRY ([phone]) AND REQUEST URINE TO BE SENT TO REFERENCE LAB. FOR A LIST OF CLOSELY RELATED COMPOUNDS PLEASE CALL THE LAB. Lab Order: Ethyl Alcohol (ethanol); [facility] 01/15/17 13:32 Test: ETHYL ALCOHOL (ETHANOL); Value: 0.077; Range: 0.000-0.010; Abnormal: Above high normal; Units: %; Status: F Lab Order: Liver Profile; [facility] 01/15/17 13:32 Test: AST/SGOT; Value: 79; Range: 15-37; Abnormal: Above high normal; Units: U/L; Status: F Test: ALT/SGPT; Value: 123; Range: 12-78; Abnormal: Above high normal; Units: U/L; Status: F Test: ALKALINE PHOSPHATASE; Value: 82; Range: 45-117; Units: U/L; Status: F Test: BILIRUBIN,TOTAL; Value: 0.3; Range: 0.2-1.0; Units: MG/DL; Status: F Test: BILIRUBIN,DIRECT; Value: < 0.1; Range: 0.0-0.2; Units: MG/DL; Status: F Test: TOTAL PROTEIN; Value: 7.4; Range: 6.4-8.2; Units: GM/DL; Status: F Test: ALBUMIN; Value: 4.3; Range: 3.2-5.2; Units: GM/DL; Status: F Test: ALBUMIN/GLOBULIN RATIO; Value: 1.39; Range: 1.00-1.93; Status: F Lab Order: Salicylate Level; [facility] 01/15/17 13:32 Test: SALICYLATE LEVEL; Value: < 1.7; Range: 5.0-30.0; Abnormal: Below low normal; Units: MG/DL; Status: F Lab Order: Thyroid Stimulating Hormone; [facility] 01/15/17 13:32 Test: THYROID STIMULATING HORMONE; Value: 0.748; Range: 0.358-3.740; Units: uIU/ML; Status: F Lab Order: PT/INR; [facility] 01/15/17 13:32 Test: PROTHROMBIN TIME; Value: 12.9; Range: 12.3-14.5; Units: SECONDS; Status: F Test: INR; Value: 0.96; Status: F Test Note: ; THERAPUTIC HUMAN INR VALUES INDICATIONS NORMAL RANGES PROPHYLAXIS/TREATMENT OF: VENOUS THROMBOSIS 2.0-3.0 PULMONARY EMBOLISM 2.0-3.0 PREVENTION OF SYSTEMIC EMBOLISM FROM: TISSUE HEART VALVES 2.0-3.0 ACUTE MYOCARDIAL INFARCTION 2.0-3.0 VALVULAR HEART DISEASE 2.0-3.0 ATRIAL FIBRILLATION 2.0-3.0 MECHANICAL VALVES(HIGH RISK) 2.5-3.5 RECURRENT MYOCARDIAL INFARCTION 2.5-3.5 Outcome: 14:59 Decision to Hospitalize by Provider. sd1 23:50 Discharge Assessment: patient administered narcotics - no. Discharge Assessment: nn1 Patient awake, alert and oriented x 3. No cognitive and/or functional deficits noted. Patient verbalized understanding of disposition instructions. patient administered narcotics - no. The following High Risk Discharge criteria are identified: None. Condition: stable. No special radiology studies were completed. Admission hand-off: Report Faxed Fax receipt verified by CYRIL Camacho . Property :Personal belongings accompany Pt. 01/16 00:06 Patient left the ED. sls1 Signatures: Kayla Pedro MD MD sd1 Liliya Mccrary, RN RN [facility] Kay Maya, Reg Reg gb [place], Santino, HEAD SUGAR REPROCESS OPERATOR HEAD SUGAR REPROCESS OPERATOR [id number] Anjali Luu, RN RN terrence4 Lo James RN RN sls1 Len Williamson, HEAD SUGAR REPROCESS OPERATOR HEAD SUGAR REPROCESS OPERATOR jrd Miladis Ross,RN RN nn1 Farhana Bautista, Reg Reg ks16 Felipa Pandya nb2 Corrections: (The following items were deleted from the chart) 01/15 13:42 13:07 Presenting complaint: Patient states: depressed and was trying to kill self by [facility] drinking wine and took unknown quantity of percocet at 0500. Pt's boss called [employer] to check the welfare, pt did not answer the door so they climbed through sa window and found pt on her bed . EMS were called pt trans[ported to the hospital. [facility] Chart Complete MTDD
== END 2017-01-16 16:38 | DRG 812 ==
LOC: M ED 12:55 → M ED INP 16:41 → M ALC 01-16 00:08
PROVIDERS: ADMIT Internal Medicine; ATTEND Internal Medicine
DX: T40.2X2A Poisoning by other opioids, intentional self-harm, initial encounter (principal); I10 Essential (primary) hypertension; F32.9 Major depressive disorder, single episode, unspecified; E78.5 Hyperlipidemia, unspecified; E03.9 Hypothyroidism, unspecified; K21.9 Gastro-esophageal reflux disease without esophagitis; Y92.013 Bedroom of single-family (private) house as the place of occurrence of the external cause; F10.10 Alcohol abuse, uncomplicated; Z88.2 Allergy status to sulfonamides; Z79.899 Other long term (current) drug therapy

== ENCOUNTER 2017-01-16 16:58 | Inpatient (IN) | payer BC, OTHER ==
[~2017-01-16] VITALS: Ht 167.6 cm; Wt 76.6 kg
[~2017-01-16 16:58] MED LIST: LEVO50TA5 PO; METO12TA PO; OMEP20CA3 PO
[2017-01-16] MEDS ORDERED: traZODone 50 MG TAB PO PRN (17:15)
[2017-01-16] MEDS ORDERED: MOM 30ML SUSPENSION UDC PO PRN (17:15)
[2017-01-16] MEDS ORDERED: MAALOX 30 ML SUSP *UDC PO PRN (17:15)
[2017-01-16] MEDS ORDERED: LORazepam 2 MG TAB PO PRN (17:15)
[2017-01-16] MEDS ORDERED: IBUPROFEN 400 MG TAB PO PRN (17:15)
[2017-01-16] MEDS ORDERED: PRAV40TA2 PO (18:24)
[2017-01-16] MEDS ORDERED: METO-346 PO (18:24)
[2017-01-16 18:43] VITALS: BP 170/102
[2017-01-16] MEDS ORDERED: METO25TAB PO (20:36)
[2017-01-16] MEDS: PRAVASTATIN 20 MG TAB PO SCH (22:31)
[2017-01-16] MEDS: THIAMINE 100 MG TAB PO SCH (22:31)
[2017-01-16] MEDS: METOPROLOL TART 25 MG TABLET PO SCH (22:32)
[2017-01-17] MEDS: LEVOTHYROXINE 0.05 MG TAB (50 MCG) PO SCH (06:06)
[2017-01-17 06:45] VITALS: BP 179/95
[2017-01-17] MEDS ORDERED: MULTIVITAMINS/MINERALS THERAP 1 TAB PO SCH (09:00)
[2017-01-17] MEDS ORDERED: FOLIC ACID 1 MG TAB PO SCH (09:00)
[2017-01-17] MEDS: FOLIC ACID 1 MG TAB PO SCH (09:51)
[2017-01-17] MEDS: METOPROLOL TART 25 MG TABLET PO SCH ×2 (09:51→21:34)
[2017-01-17] MEDS: THIAMINE 100 MG TAB PO SCH ×2 (09:52→21:31)
[2017-01-17] MEDS: MULTIVITAMINS/MINERALS THERAP 1 TAB PO SCH (09:52)
[2017-01-17 09:54] VITALS: BP 156/96
[2017-01-17 10:00] VITALS: BP 180/96
[2017-01-17] MEDS: chlordiazePOXIDE 25 MG CAP PO SCH ×2 (11:58→21:31)
[2017-01-17] MEDS ORDERED: SERTRALINE HCL 25 MG TABLET PO ONE (12:00)
--- NOTE | 2017-01-17 12:06 | HPEPDOC ---
Medical History and Physical Date of Admission Jan 16, 2017 at 16:58 History and Physical PCP: Dr Kramer ATTENDING: Dr. Nakul Gonzáles HPI: 51[facility]F [facility] unspecified [facility] disorder, being medically examined today. No acute medical complaints today. Denies any fevers, chills, weakness, fatigue, SANTOS, CP, SOB, cough, palpitations, abdominal pain, N/V /D or changes in bowel or bladder habits. 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 ROS: As noted in HPI, otherwise 11pt ROS of systems reviewed and remarkable only for hysterectomy PE: GEN: 51 yo female, appears stated age. Well-nourished, well developed. No acute distress. Alert and oriented x 3. Pleasant, interactive. HEENT: Normocephalic, atraumatic. Pupils are equal, round, and reactive to light. Extraocular movements are intact. No nystagmus appreciated. Sclera are nonicteric. Conjunctiva without injection. Nose midline. Nasal turbinates without bogginess. EACs both patent BL. TMs both visualized and tom with good cone of light, no bulging or erythema. No facial asymmetry. Moist mucous membranes. Dentition fair. Pharynx pink and moist, no cobblestoning. Neck supple , trachea midline. No lymphadenopathy or thyromegaly appreciated. CHEST: Regular rate and rhythm, +S1, +S2 LUNGS: Clear to auscultation bilaterally. No wheezes, rales, or rhonchi. Breathing appears symmetric and easy. Patient is speaking in full sentences. No accessory muscle use. ABD: Round, soft, non-tender, non-distended. +Bowel sounds throughout. No rebound or guarding. No costovertebral angle tenderness. EXT: Pulses 2+ bilaterally dorsalis pedis and radial. No lower extremity edema appreciated. SKIN: [place], dry, warm. Capillary refill <2sec. No rashes. NEURO: Alert and oriented x 3. Cranial nerves III-XII are intact. No focal deficits appreciated. EK01/16/17 SR. A&P: 51yoF [facility] for unspecified depressive disorder 1. Psych. Plan per Psychiatry. EKG on file. 2. Hypertension. Continue with metoprolol 25 mg by mouth twice a day. 3. Hypothyroid. Continue with levothyroxine 50 g by mouth daily. 4. Follow up with PCP on discharge. 5. GERD. Continue with Prilosec 20 mg by mouth daily. 6. History of substance use. Per psychiatry. 7. Elevated LFTs. Trending downward. Recheck CMP in a.m. 8. Hypokalemia. Recheck CMP in a.m. 9. Staff member present throughout exam, Zuri NAM. Vital Signs Vital Signs Label Value Date Time Patient Temperature 98.2 degrees F 01/17/17 0954 Temperature Source Tympanic 01/17/17 0954 Pulse 68 01/17/17 0954 Respiratory Rate 20 bpm 01/17/17 0954 Blood Pressure Assessment 156/96 (116) 01/17/17 0954 Laboratory Data Labs 24H Item Value Date Time White Blood Count 5.8 K/mm3 01/16/17 0640 Red Blood Count 4.20 M/mm3 01/16/17 0640 Hemoglobin 12.8 g/dl 01/16/17 0640 Hematocrit 37.9 % 01/16/17 0640 Mean Corpuscular Volume 90.3 fl 01/16/17 0640 Mean Corpuscular Hemoglobin 30.4 pg 01/16/17 0640 Mean Corpuscular Hemoglobin Concent 33.7 g/dl 01/16/17 0640 Red Cell Distribution Width 11.5 % 01/16/17 0640 Platelet Count 189 k/mm3 01/16/17 0640 Sodium Level 142 MEQ/L 01/16/17 0640 Potassium Level 3.4 MEQ/L L 01/16/17 0640 Chloride Level 105 MEQ/L 01/16/17 0640 Carbon Dioxide Level 24 MEQ/L 01/16/17 0640 Anion Gap 13 MEQ/L 01/16/17 0640 Blood Urea Nitrogen 8 MG/DL 01/16/17 0640 Creatinine 0.64 MG/DL 01/16/17 0640 Glomerular Filtration Rate > 60.0 01/16/17 0640 Fasting Glucose 120 MG/DL H 01/16/17 0640 Calcium Level 8.8 MG/DL 01/16/17 0640 Magnesium Level 1.8 MG/DL 01/16/17 0640 Total Bilirubin 0.9 MG/DL # 01/16/17 0640 Aspartate Amino Transf (AST/SGOT) 47 U/L H 01/16/17 0640 Alanine Aminotransferase (ALT/SGPT) 91 U/L H 01/16/17 0640 Alkaline Phosphatase 64 U/L 01/16/17 0640 Total Protein 6.5 GM/DL 01/16/17 0640 Albumin 3.4 GM/DL # 01/16/17 0640 Albumin/Globulin Ratio 1.10 01/16/17 0640 Salicylates Level < 1.7 MG/DL L 01/15/17 1332 Urine Opiates Screen POSITIVE H 01/15/17 1522 Urine Methadone Screen NEGATIVE 01/15/17 1522 Acetaminophen Level < 2.0 UG/ML L 01/16/17 1157 Urine Barbiturates Screen NEGATIVE 01/15/17 1522 Urine Tricyclic Antidepressants NEGATIVE 01/15/17 1522 Urine Amphetamines Screen NEGATIVE 01/15/17 1522 Urine Benzodiazepines Screen NEGATIVE 01/15/17 1522 Urine Cocaine Metabolite Screen NEGATIVE 01/15/17 1522 Urine Cannabinoids Screen NEGATIVE 01/15/17 1522 Ethyl Alcohol Level 0.077 % H 01/15/17 1332 Home Medications Scheduled Levothyroxine Sodium (Synthroid) 50 Mcg Tab 50 MCG PO DAILY Metoprolol Tartrate (Metoprolol Tartrate) 25 Mg Tab 25 MG PO BID High Blood Pressure Omeprazole (Omeprazole) 20 Mg Cap 20 MG PO DAILY Pravastatin Sod (Pravastatin Sodium) 40 Mg Tab 1 TAB PO DAILY cholesterol Allergies Coded Allergies: Sulfa Antibiotics (Verified Allergy, Intermediate, RASH, 01/15/17) Anh Pickard Jan 17, 2017 12:06
--- NOTE | 2017-01-17 13:03 | MHHPE ---
DATE OF ADMISSION: 01/16/2017 LEGAL STATUS AT ADMISSION: color tester ([facility]) legal status. CHIEF COMPLAINT: "I've been feeling depressed and I overdosed." HISTORY OF PRESENT ILLNESS: 51-year-old female without significant psychiatric history admitted to our unit on [facility] legal status. Patient was transferred from the medical floor where she was stabilized after she took an overdose of approximately 25 tablets of Percocet. This medication belonged to a relative that "took two or three out of them and maybe two fell on the floor." Patient admits that she was drinking before she overdosed. During the interview today, patient reports that she was fine and doing well up until 2 years ago when her boyfriend who was sharing "everything" and "we raised a family together for 15 years," told her unexpectedly that "he had to leave the next coming weekend." Patient stated that this came out of the blue and unexpectedly. She now realizes that she is a "people pleaser" and "I put everybody else in front of me." During the interview, she reported that she has been feeling depressed, "feeling alone." Patient was tearful at several times during the interview and intermittently she was very labile. She was making statements such as "I lost everything, I lost my home, my family, my friends." Patient also reports that after she moved out 2 years ago she had to move three more times. Patient says that for the last month she had a skunk infestation and that she was not able to sleep more than 3 hours a night, that she was awakened constantly, feels not rested. She reports her energy level has been very low and feeling very stressed. She also reports that since the relationship break 2 years ago she has been drinking wine every night excessively. She says that she can drink around five glasses of wine a night. She does not feel that her lifestyle or work has been affected by it. During the interview, there is no evidence of psychotic symptoms, no auditory or visual hallucinations or delusions, no feelings of paranoia. PAST MEDICAL HISTORY: Patient has been diagnosed with hypertension, hypothyroidism, hyperlipidemia, and gastroesophageal reflux disease (GERD). PAST PSYCHIATRIC HISTORY: This is her first psychiatric admission. Patient never felt depressed before and started having some mood fluctuations 2 years ago when the relationship with her boyfriend ended. FAMILY HISTORY: Patient reports that her brother has been diagnosed with depression. SUBSTANCE ABUSE HISTORY: As stated above, for the past 2 years has been drinking wine at night excessively. No other substances. SOCIAL HISTORY: Patient reports a completely normal childhood with no abuse or neglect. "We were short on money and a lot of kids, but we had no problems." Patient is very functional. She works for the [employer]. As stated above, she had to move three times in a year and a half after she left her boyfriend. REVIEW OF SYSTEMS: CONSTITUTIONAL: No weight loss, fevers, chills, weakness, or fatigue. HEENT: No visual loss, blurry vision, double vision, or yellow sclerae. No hearing loss, sneezing, congestion, runny nose, or sore throat. SKIN: No rash or itching. CARDIOVASCULAR: No chest pain, chest pressure, chest discomfort, palpitations, or edema. RESPIRATORY: No shortness of breath, cough, or sputum. GASTROINTESTINAL (GI): No anorexia, nausea, vomiting, or diarrhea. No abdominal pain or blood. GENITOURINARY (): No burning or pain on urination. NEUROLOGICAL: No headache, dizziness, syncope, paralysis, ataxia, numbness, or tingling. MUSCULOSKELETAL: No muscle pain, back pain, joint pain, or stiffness. HEMATOLOGIC: No anemia, bleeding, or bruising. LYMPHATICS: No history of a splenectomy. ENDOCRINOLOGIC: No report of sweating, cold or heat intolerance. No polyuria or polydipsia. ALLERGY: No history of asthma, hives, eczema, or rhinitis. 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 LABORATORY DATA AT ADMISSION: No labs have been drawn in our unit since she was worked up medically at the medical floor. MENTAL STATUS EXAMINATION: Patient is dressed in [facility]. Patient is cooperative. Speech is soft and monotone. Fair eye contact. Mood is depressed and anxious. Affect is tearful, labile. Patient is oriented to time, place, person, and situation. Maintains attention and concentration correctly. Instant recall, recent and remote memory are intact. Thought processes are coherent, logical, and goal-directed. Patient does not have auditory or visual hallucinations. Patient does not have paranoid, persecutory, somatic, grandiose, or advent delusions. Patient has suicidal thoughts, status post overdose. No homicidal ideation. Judgment and insight are poor. DIAGNOSES: AXIS I: Major depressive disorder. Alcohol abuse. AXIS II: Deferred. AXIS III: Status post overdose, hypertension, hypothyroidism, hyperlipidemia, and gastroesophageal reflux disease (GERD). INITIAL TREATMENT PLAN: Patient was admitted on a color tester ([facility]) legal status. Complete history was obtained. With her permission, family will be contacted and database will be expanded. Her medication regimen will be reviewed and changed accordingly. She will be provided with protected environment. She will be treated with individual, group, and milieu therapy. She will also receive supportive psychoeducation. Discharge planning will commence immediately. Length of stay will be between 7-10 days. Outpatient followup will be strongly recommended. The treatment plan will focus initially on depression, risk for suicide, and substance abuse.
[2017-01-17 14:12] VITALS: BP 144/82
[2017-01-17 18:00] VITALS: BP 146/74
[2017-01-17] MEDS ORDERED: traZODone 100 MG TAB PO SCH (21:00)
[2017-01-17 22:00] VITALS: BP 148/88
[2017-01-17] MEDS: PRAVASTATIN 20 MG TAB PO SCH (22:04)
[2017-01-18] MEDS: LEVOTHYROXINE 0.05 MG TAB (50 MCG) PO SCH (06:24)
[2017-01-18 06:53] VITALS: BP 169/90
[2017-01-18 07:31] LABS: ALBUMIN 3.7 GM/DL (3.2-5.2); ALBUMIN/GLOBULIN RATIO 1.28 (1.00-1.93); ALKALINE PHOSPHATASE 65 U/L (45-117); ALT/SGPT 81 U/L (12-78); ANION GAP 10 MEQ/L (8-16); AST/SGOT 51 U/L (15-37); BLOOD UREA NITROGEN 12 MG/DL (7-18); CALCIUM LEVEL 9.3 MG/DL (8.5-10.1); CARBON DIOXIDE LEVEL 26 MEQ/L (21-32); CHLORIDE LEVEL 106 MEQ/L (98-107); CREATININE FOR GFR 0.59 MG/DL (0.55-1.02); GLOMERULAR FILTRATION RATE > 60.0 (>51); GLUCOSE, FASTING 111 MG/DL (70-105); POTASSIUM SERUM 3.6 MEQ/L (3.5-5.1); SODIUM LEVEL 142 MEQ/L (136-145); TOTAL PROTEIN 6.6 GM/DL (6.4-8.2)
[2017-01-18] MEDS: SERTRALINE HCL 50 MG TAB PO SCH (09:10)
[2017-01-18] MEDS: FOLIC ACID 1 MG TAB PO SCH (09:10)
[2017-01-18] MEDS: chlordiazePOXIDE 25 MG CAP PO SCH ×2 (09:10→22:01)
[2017-01-18] MEDS: OMEPRAZOLE 20 MG CAP PO SCH (09:10)
[2017-01-18] MEDS: METOPROLOL TART 25 MG TABLET PO SCH ×2 (09:11→22:01)
[2017-01-18] MEDS: THIAMINE 100 MG TAB PO SCH ×2 (09:11→22:01)
[2017-01-18] MEDS: MULTIVITAMINS/MINERALS THERAP 1 TAB PO SCH (09:11)
[2017-01-18 11:44] VITALS: BP 150/90
[2017-01-18] MEDS ORDERED: traZODone 50 MG TAB PO PRN (16:30)
--- NOTE | 2017-01-18 17:14 | IPN ---
DATE: 01/18/2017 MEDICATIONS: - Zoloft 50 mg by mouth every morning - trazodone 100 mg by mouth at bedtime - thiamine, folate, and multivitamin as per detoxification protocol - Librium 25 mg by mouth twice a day A 51-year-old female without significant past psychiatric history was transferred from the medical floor after she overdosed on 25 tablets of Percocet. SUBJECTIVE: "I need to go home now." OBJECTIVE: Patient continues to be focused on discharge issues. Patient believes she has been punished because she has been obligated to stay in our unit against her will. She is making statements, such as, "what do I have to do to show you that I'm not suicidal." I tried to explain several times that we need to have a period of observation to make sure that we have the correct diagnosis and recommendations before discharge. She remains in her unit. Is not interacting with other patients and staff, so the observation is difficult, since patient does not feel like getting out of the room and interacting with anybody or going to any of psychotherapeutic activities of the unit. Patient is denying suicidal or homicidal ideation, but, again, she focused on discharge issues and minimizing the events that led to her admission There is no evidence of psychotic symptoms. No auditory or visual hallucinations or delusions. MENTAL STATUS EXAMINATION: Patient is dressed in [facility]. Patient is lying in bed with sad, restricted facial expressed. Patient appeared frustrated and angry because of her involuntary hospitalization and is not able to engage in therapy, since she feels she is being punished and does not see a reason why she should stay in the hospital. Again, mood is depressed and anxious. Affect is restricted, labile, at times tearful. No evidence of delusions or hallucinations. Memory is fair. Patient is fully oriented. Associations are intact. Thinking is logical. Thought content is appropriate. Patient is denying suicidal or homicidal ideation during the interview, but, again, she is minimizing all the symptoms and events that led to her admission. Insight and judgment are limited. ASSESSMENT: 1. Major depressive disorder. 2. Alcohol abuse. PLAN: 1. Continue with sertraline 50 mg by mouth every morning. 2. Continue with thiamine, folic acid, and multivitamin as per detoxification protocol. 3. Will continue tapering Librium. 4. Change trazodone from 100 mg by mouth at bedtime to 50 mg by mouth at bedtime as needed for insomnia. May repeat times one if no results.
[2017-01-18 18:00] VITALS: BP 164/98
[2017-01-18] MEDS: PRAVASTATIN 20 MG TAB PO SCH (22:01)
[2017-01-19] MEDS: LEVOTHYROXINE 0.05 MG TAB (50 MCG) PO SCH (06:08)
[2017-01-19 06:35] VITALS: BP 160/98
[2017-01-19] MEDS: SERTRALINE HCL 50 MG TAB PO SCH (09:43)
[2017-01-19] MEDS: FOLIC ACID 1 MG TAB PO SCH (09:44)
[2017-01-19] MEDS: MULTIVITAMINS/MINERALS THERAP 1 TAB PO SCH (09:44)
[2017-01-19] MEDS: OMEPRAZOLE 20 MG CAP PO SCH (09:44)
[2017-01-19] MEDS: THIAMINE 100 MG TAB PO SCH (09:44)
[2017-01-19 09:50] VITALS: BP 178/95
[2017-01-19] MEDS: METOPROLOL TART 25 MG TABLET PO SCH ×2 (09:50→22:24)
[2017-01-19 13:44] VITALS: BP 163/91
[2017-01-19 18:29] VITALS: BP 187/88
--- NOTE | 2017-01-19 19:59 | IPNPDOC ---
[facility] Progress Note Progress Note DATE OF SERVICE: 01/19/17 Subjective: Patient is calm and cooperative and engaged in the interview. Patient reports increasing mood since admission. Reports a now 2/10 intensity level of depression. Patient denies alcohol w/d symptoms. She reports benefit from the time here inpatient away from her home which currently is one of her many psychosocial stressors concurrent over the last 2-3 years. She denies SI/HI and AH/VH. Patient reports fair sleep and appetite. Patient reports med compliance and denies med s/e's. Objective: VITALS: wnl MENTAL STATUS EXAMINATION: Patient looks stated age, in NAD, bright, calm and cooperative. Has good eye contact. Speech RRR. Mood is euthymic Affect is full. No delusions or hallucinations noted. Memory is fair. The patient is fully oriented. Associations are intact. Thinking is linear. Thought content is appropriate. Patient denies suicidal or homicidal ideation during the interview. Insight and judgment are fair. ASSESSMENT: 1. MDD. 2. Alcohol use d/o. PLAN: 1. Continue close observation. 2. Continue current psychotropic med regimen. 3. Continue alcohol detox protocol. Continue Librium taper. 4. Continue vitamins. 5. Continue with individual and group therapy. Time spent: 30 minutes Vital Signs Vital Signs Date Time Temp Pulse Resp B/P Pulse Ox O2 Delivery O2 Flow Rate FiO2 01/19/17 18:29 97.6 68 16 187/88 01/16/17 18:43 94 Room Air Current Medications Current Medications Al Hydrox/Mg Hydrox/Simethicone (Mylanta) 30 ml Q4HP PRN PO HEARTBURN/ INDIGESTION; Start 01/16/17 at 17:15; Stop 02/15/17 at 17:14 Chlordiazepoxide (Librium) 25 mg BID PO Last administered on 01/18/17 09:10; Start 01/17/17 at 09:00; Stop 01/18/17 at 16:32; Status DC Chlordiazepoxide (Librium) 25 mg QHS PO Last administered on 01/18/17 22:01; Start 01/18/17 at 21:00; Stop 01/25/17 at 20:59 Folic Acid (Folic Acid) 1 mg DAILY PO Last administered on 01/19/17 09:44; Start 01/17/17 at 09:00; Stop 02/16/17 at 08:59 Folic Acid (Folic Acid) 1 mg DAILY PO ; Start 01/17/17 at 09:00; Stop 02/16/17 at 08:59; Status UNV Home Med (Med Rec Complete!) ASDIRECTED XX ; Start 01/16/17 at 20:45; Stop at 20:47; Status DC Ibuprofen (Advil) 400 mg Q6HP PRN PO PAIN; Start 01/16/17 at 17:15; Stop at 17:14 Levothyroxine Sodium (Synthroid) 0.05 mg DAILY@06 PO Last administered on 06:08; Start 01/17/17 at 06:00; Stop 02/16/17 at 05:59 Lorazepam (Ativan) 2 mg ASDIRECTED PRN PO SEE PROTOCOL Last administered on 18:40; Start 01/16/17 at 17:15; Stop 01/17/17 at 11:42; Status DC Magnesium Hydroxide (Milk Of Magnesia) 30 ml DAILYPRN PRN PO CONSTIPATION; Start 01/16/17 at 17:15; Stop 02/15/17 at 17:14 Metoprolol Tartrate (Lopressor) 25 mg BID PO Last administered on 01/19/17 09: 50; Start 01/16/17 at 21:00; Stop 02/15/17 at 20:59 Multivitamins (Theragram-M) 1 tab DAILY PO Last administered on 01/19/17 09:44 ; Start 01/17/17 at 09:00; Stop 02/16/17 at 08:59 Multivitamins (Theragram-M) 1 tab DAILY PO ; Start 01/17/17 at 09:00; Stop 02/16 at 08:59; Status UNV Omeprazole (PriLOSEC) 20 mg DAILY PO Last administered on 01/19/17 09:44; Start 01/18/17 at 09:00; Stop 02/17/17 at 08:59 Pravastatin Sodium (Pravachol) 40 mg QHS PO Last administered on 01/18/17 22: 01; Start 01/16/17 at 21:00; Stop 02/15/17 at 20:59 Sertraline HCl (Zoloft) 50 mg QAM PO Last administered on 01/19/17 09:43; Start 01/18/17 at 09:00; Stop 02/17/17 at 08:59 Thiamine HCl (Thiamine HCl) 100 mg BID PO Last administered on 01/19/17 09:44 ; Start 01/16/17 at 21:00; Stop 01/19/17 at 12:00; Status DC Thiamine HCl (Thiamine HCl) 100 mg DAILY PO ; Start 01/20/17 at 09:00; Stop at 08:59 Trazodone HCl (Desyrel) 50 mg QHSP PRN PO INSOMNIA; Start 01/16/17 at 17:15; Stop 01/17/17 at 11:42; Status DC Trazodone HCl (Desyrel) 50 mg QHSP PRN PO INSOMNIA; Start 01/18/17 at 16:30; Stop 02/17/17 at 16:29 Trazodone HCl (Desyrel) 100 mg QHS PO Last administered on 01/17/17 21:30; Start 01/17/17 at 21:00; Stop 01/18/17 at 16:32; Status DC Allergies Coded Allergies: Sulfa Antibiotics (Verified Allergy, Intermediate, RASH, 01/15/17) JOHN NUNEZ MD Jan 19, 2017 19:59 Allergies Coded Allergies: Sulfa Antibiotics (Verified Allergy, Intermediate, RASH, 01/15/17) JOHN NUNEZ MD Jan 19, 2017 19:59
[2017-01-19] MEDS: chlordiazePOXIDE 25 MG CAP PO SCH (22:24)
[2017-01-19] MEDS: PRAVASTATIN 20 MG TAB PO SCH (22:24)
[2017-01-20] MEDS: LEVOTHYROXINE 0.05 MG TAB (50 MCG) PO SCH (06:13)
[2017-01-20 06:45] VITALS: BP 144/98
[2017-01-20] MEDS: THIAMINE 100 MG TAB PO SCH (09:30)
[2017-01-20] MEDS: FOLIC ACID 1 MG TAB PO SCH (09:30)
[2017-01-20] MEDS: MULTIVITAMINS/MINERALS THERAP 1 TAB PO SCH (09:30)
[2017-01-20] MEDS: OMEPRAZOLE 20 MG CAP PO SCH (09:30)
[2017-01-20] MEDS: METOPROLOL TART 25 MG TABLET PO SCH ×2 (09:31→21:17)
[2017-01-20] MEDS: SERTRALINE HCL 50 MG TAB PO SCH (09:31)
[2017-01-20 11:54] VITALS: BP 164/77
--- NOTE | 2017-01-20 15:03 | CR.PDOC ---
[facility] Consultation Consultation PLEASE DISREGARD THIS NOTE IT WAS OPENED IN ERROR....THE NOTE FOR IS A PROGRESS NOTE, WHICH IS SIGNED AND IN THE EMR. THIS CONSULTATION NOTE WAS OPENED IN ERROR. Vital Signs Vital Signs Date Time Temp Pulse Resp B/P Pulse Ox O2 Delivery O2 Flow Rate FiO2 01/20/17 11:54 97.2 64 16 164/77 01/16/17 18:43 94 Room Air Home Medications Current Medications Current Medications Al Hydrox/Mg Hydrox/Simethicone (Mylanta) 30 ml Q4HP PRN PO HEARTBURN/ INDIGESTION; Start 01/16/17 at 17:15; Stop 02/15/17 at 17:14 Chlordiazepoxide (Librium) 25 mg BID PO Last administered on 01/18/17 09:10; Start 01/17/17 at 09:00; Stop 01/18/17 at 16:32; Status DC Chlordiazepoxide (Librium) 25 mg QHS PO Last administered on 01/19/17 22:24; Start 01/18/17 at 21:00; Stop 01/25/17 at 20:59 Folic Acid (Folic Acid) 1 mg DAILY PO Last administered on 01/20/17 09:30; Start 01/17/17 at 09:00; Stop 02/16/17 at 08:59 Folic Acid (Folic Acid) 1 mg DAILY PO ; Start 01/17/17 at 09:00; Stop 02/16/17 at 08:59; Status UNV Gabapentin (Neurontin) 300 mg TID PO ; Start 01/20/17 at 16:00; Stop 02/19/17 at 15:59 Home Med (Med Rec Complete!) ASDIRECTED XX ; Start 01/16/17 at 20:45; Stop at 20:47; Status DC Ibuprofen (Advil) 400 mg Q6HP PRN PO PAIN; Start 01/16/17 at 17:15; Stop at 17:14 Levothyroxine Sodium (Synthroid) 0.05 mg DAILY@06 PO Last administered on 06:13; Start 01/17/17 at 06:00; Stop 02/16/17 at 05:59 Lorazepam (Ativan) 2 mg ASDIRECTED PRN PO SEE PROTOCOL Last administered on 18:40; Start 01/16/17 at 17:15; Stop 01/17/17 at 11:42; Status DC Magnesium Hydroxide (Milk Of Magnesia) 30 ml DAILYPRN PRN PO CONSTIPATION; Start 01/16/17 at 17:15; Stop 02/15/17 at 17:14 Metoprolol Tartrate (Lopressor) 25 mg BID PO Last administered on 01/20/17 09: 31; Start 01/16/17 at 21:00; Stop 02/15/17 at 20:59 Multivitamins (Theragram-M) 1 tab DAILY PO Last administered on 01/20/17 09:30 ; Start 01/17/17 at 09:00; Stop 02/16/17 at 08:59 Multivitamins (Theragram-M) 1 tab DAILY PO ; Start 01/17/17 at 09:00; Stop 02/16 at 08:59; Status UNV Omeprazole (PriLOSEC) 20 mg DAILY PO Last administered on 01/20/17 09:30; Start 01/18/17 at 09:00; Stop 02/17/17 at 08:59 Pravastatin Sodium (Pravachol) 40 mg QHS PO Last administered on 01/19/17 22: 24; Start 01/16/17 at 21:00; Stop 02/15/17 at 20:59 Sertraline HCl (Zoloft) 50 mg QAM PO Last administered on 01/20/17 09:31; Start 01/18/17 at 09:00; Stop 02/17/17 at 08:59 Thiamine HCl (Thiamine HCl) 100 mg BID PO Last administered on 01/19/17 09:44 ; Start 01/16/17 at 21:00; Stop 01/19/17 at 12:00; Status DC Thiamine HCl (Thiamine HCl) 100 mg DAILY PO Last administered on 01/20/17 09: 30; Start 01/20/17 at 09:00; Stop 02/19/17 at 08:59 Trazodone HCl (Desyrel) 50 mg QHSP PRN PO INSOMNIA; Start 01/16/17 at 17:15; Stop 01/17/17 at 11:42; Status DC Trazodone HCl (Desyrel) 50 mg QHSP PRN PO INSOMNIA; Start 01/18/17 at 16:30; Stop 02/17/17 at 16:29 Trazodone HCl (Desyrel) 100 mg QHS PO Last administered on 01/17/17 21:30; Start 01/17/17 at 21:00; Stop 01/18/17 at 16:32; Status DC Scheduled ([Sertraline Hcl]) 50 MG TAB 50 MG PO QAM DEPRESSION Gabapentin (Gabapentin) 300 Mg Cap 300 MG PO TID MOOD Levothyroxine Sodium (Synthroid) 50 Mcg Tab 50 MCG PO DAILY (Reported) Metoprolol Tartrate (Metoprolol Tartrate) 25 Mg Tab 25 MG PO BID High Blood Pressure (Reported) Omeprazole (Omeprazole) 20 Mg Cap 20 MG PO DAILY (Reported) Pravastatin Sod (Pravastatin Sodium) 40 Mg Tab 1 TAB PO DAILY cholesterol ( Reported) Allergies Coded Allergies: Sulfa Antibiotics (Verified Allergy, Intermediate, RASH, 01/15/17) JOHN NUNEZ MD Jan 20, 2017 15:03 Start 01/17/17 at 09:00; Stop 01/18/17 at 16:32; Status DC Chlordiazepoxide (Librium) 25 mg QHS PO Last administered on 01/19/17 22:24; Start 01/18/17 at 21:00; Stop 01/25/17 at 20:59 Folic Acid (Folic Acid) 1 mg DAILY PO Last administered on 01/20/17 09:30; Start 01/17/17 at 09:00; Stop 02/16/17 at 08:59 Folic Acid (Folic Acid) 1 mg DAILY PO ; Start 01/17/17 at 09:00; Stop 02/16/17 at 08:59; Status UNV Gabapentin (Neurontin) 300 mg TID PO ; Start 01/20/17 at 16:00; Stop 02/19/17 at 15:59 Home Med (Med Rec Complete!) ASDIRECTED XX ; Start 01/16/17 at 20:45; Stop at 20:47; Status DC Ibuprofen (Advil) 400 mg Q6HP PRN PO PAIN; Start 01/16/17 at 17:15; Stop at 17:14 Levothyroxine Sodium (Synthroid) 0.05 mg DAILY@06 PO Last administered on 06:13; Start 01/17/17 at 06:00; Stop 02/16/17 at 05:59 Lorazepam (Ativan) 2 mg ASDIRECTED PRN PO SEE PROTOCOL Last administered on 18:40; Start 01/16/17 at 17:15; Stop 01/17/17 at 11:42; Status DC Magnesium Hydroxide (Milk Of Magnesia) 30 ml DAILYPRN PRN PO CONSTIPATION; Start 01/16/17 at 17:15; Stop 02/15/17 at 17:14 Metoprolol Tartrate (Lopressor) 25 mg BID PO Last administered on 01/20/17 09: 31; Start 01/16/17 at 21:00; Stop 02/15/17 at 20:59 Multivitamins (Theragram-M) 1 tab DAILY PO Last administered on 01/20/17 09:30 ; Start 01/17/17 at 09:00; Stop 02/16/17 at 08:59 Multivitamins (Theragram-M) 1 tab DAILY PO ; Start 01/17/17 at 09:00; Stop 02/16 at 08:59; Status UNV Omeprazole (PriLOSEC) 20 mg DAILY PO Last administered on 01/20/17 09:30; Start 01/18/17 at 09:00; Stop 02/17/17 at 08:59 Pravastatin Sodium (Pravachol) 40 mg QHS PO Last administered on 01/19/17 22: 24; Start 01/16/17 at 21:00; Stop 02/15/17 at 20:59 Sertraline HCl (Zoloft) 50 mg QAM PO Last administered on 01/20/17 09:31; Start 01/18/17 at 09:00; Stop 02/17/17 at 08:59 Thiamine HCl (Thiamine HCl) 100 mg BID PO Last administered on 01/19/17 09:44 ; Start 01/16/17 at 21:00; Stop 01/19/17 at 12:00; Status DC Thiamine HCl (Thiamine HCl) 100 mg DAILY PO Last administered on 01/20/17 09: 30; Start 01/20/17 at 09:00; Stop 02/19/17 at 08:59 Trazodone HCl (Desyrel) 50 mg QHSP PRN PO INSOMNIA; Start 01/16/17 at 17:15; Stop 01/17/17 at 11:42; Status DC Trazodone HCl (Desyrel) 50 mg QHSP PRN PO INSOMNIA; Start 01/18/17 at 16:30; Stop 02/17/17 at 16:29 Trazodone HCl (Desyrel) 100 mg QHS PO Last administered on 01/17/17t 21:30; Start 01/17/17 at 21:00; Stop 01/18/17 at 16:32; Status DC Scheduled Levothyroxine Sodium (Synthroid) 50 Mcg Tab 50 MCG PO DAILY (Reported) Metoprolol Tartrate (Metoprolol Tartrate) 25 Mg Tab 25 MG PO BID High Blood Pressure (Reported) Omeprazole (Omeprazole) 20 Mg Cap 20 MG PO DAILY (Reported) Pravastatin Sod (Pravastatin Sodium) 40 Mg Tab 1 TAB PO DAILY cholesterol ( Reported) Allergies Coded Allergies: Sulfa Antibiotics (Verified Allergy, Intermediate, RASH, 01/15/17) JOHN NUNEZ MD Jan 20, 2017 15:03
[2017-01-20] MEDS: GABAPENTIN 300 MG CAP PO SCH ×2 (15:08→21:13)
[2017-01-20 18:00] VITALS: BP 136/80
[2017-01-20 19:26] VITALS: BP 136/80
[2017-01-20] MEDS: PRAVASTATIN 20 MG TAB PO SCH (21:18)
[2017-01-20] MEDS: chlordiazePOXIDE 25 MG CAP PO SCH (21:19)
[2017-01-21] MEDS: LEVOTHYROXINE 0.05 MG TAB (50 MCG) PO SCH (06:18)
[2017-01-21 06:51] VITALS: BP 157/86
[2017-01-21] MEDS: GABAPENTIN 300 MG CAP PO SCH ×2 (09:00→15:13)
[2017-01-21] MEDS: MULTIVITAMINS/MINERALS THERAP 1 TAB PO SCH (09:00)
[2017-01-21] MEDS: OMEPRAZOLE 20 MG CAP PO SCH (09:00)
[2017-01-21] MEDS: SERTRALINE HCL 50 MG TAB PO SCH (09:00)
[2017-01-21] MEDS: FOLIC ACID 1 MG TAB PO SCH (09:00)
[2017-01-21] MEDS: THIAMINE 100 MG TAB PO SCH (09:00)
[2017-01-21 09:01] VITALS: BP 138/90
[2017-01-21] MEDS: METOPROLOL TART 25 MG TABLET PO SCH (09:01)
[2017-01-21] MEDS ORDERED: GABA300C3 PO (15:27)
[2017-01-21] MEDS ORDERED: Sertraline Hcl PO (15:27)
--- NOTE | 2017-01-23 10:49 | MHDS ---
DATE OF ADMISSION: 01/16/2017 DATE OF DISCHARGE: 01/21/2017 LEGAL STATUS ON ADMISSION: DCS legal status. HISTORY OF PRESENT ILLNESS: 51-year-old female without significant psychiatric history, admitted to our unit on a DCS legal status. The patient was transferred from the medical floor where she was stabilized after she took an overdose of approximately 25 tablets of Percocet. This medication belonged to a relative that "took two or three out of them maybe two fell on the floor." The patient admits that she was drinking before she overdosed. During the interview in our unit, she reported that she was doing well up until two years ago when her boyfriend was sharing "everything" told her unexpectedly that "she had to leave the next coming weekend." The patient stated that this came out of the blue and unexpectedly. She now realizes that she is a "people pleaser," and "I put everybody else in front of me." During the interview, she reported that she has been feeling depressed, "feeling alone." The patient was tearful several times during the interview. She was very labile. She was making statements such as "I lost everything, I lost my home, my family, my friends." The patient also stated that she had to move two to three times recently. Also said that for the last month she had a "skunk infestation," and she was not able to sleep more than three hours at night. She was awakened constantly. She was feeling not rested. She reports that her energy level was very low and was feeling very stressed. Also stated that since the relationship with her ex boyfriend breakup two years ago she has been drinking excessively every night. Stated that she can drink around five glasses of wine at night. She does not believe that her work or quality of life has been affected by the drinking. During the interview, the patient denies auditory or visual hallucinations, delusions or feelings of paranoia. LABORATORY DATA: At admission were not drawn since she was transferred from the medical floor where she was medically worked up. HOSPITALIZATION COURSE: After the first evaluation, she was started on Zoloft 50 mg by mouth in the morning, trazodone 50 mg by mouth at night as needed for insomnia, and thiamine, multivitamin and folic acid as detox protocol. She also was on 25 mg by mouth three times a day. She tolerated the above medications well. The patient had no complications during this hospital admission. Her evaluation was difficult because since the first day she was asking to be discharged home. She was mostly in her room and did not want to get out or interact with other patients or go to groups. Finally, she decided to go to some groups, but she was saying that it was difficult for her since she cannot tolerate to be around a group of people. She consistently denied any suicidal ideation. On January 21, a meeting was held with her daughter, who is very supportive. They came up with a plan, so she was discharged on 01/22/2017 in stable condition. The patient was denying suicidal or homicidal ideation. The patient had no psychotic symptoms. No auditory or visual hallucinations or delusions. MEDICATIONS: On discharge: - Zoloft 50 mg by mouth in the morning - Neurontin 300 mg by mouth three times a day MENTAL STATUS EXAMINATION: The patient is dressed in casual clothes. The patient is calm and cooperative. His speech is clear, coherent, with normal rate and is spontaneous. The patient has fair eye contact. Mood is euthymic. Affect is appropriate and congruent with mood. Patient is oriented to time, place, person and situation. Maintains attention and concentration correctly. Instant recall, recent and remote memory are intact. Thought processes are coherent, logical, and goal directed. Patient does not have auditory or visual hallucinations. Patient does not have paranoid, persecutory, somatic, grandiose or yazdanism delusions. Patient denies suicidal or homicidal ideation. Judgment and insight are fair. DIAGNOSES: [place] I: Major depressive disorder, alcohol abuser. [place] II: Deferred. [place] III: Alcohol intoxication, status post overdose on Percocet. INSTRUCTIONS TO PATIENT: The patient is to continue taking her medications as prescribed and followup appointment. She is advised to maintain absolute sobriety from drugs and alcohol. The patient has a scheduled appointment for psychotropic medication management and individual psychotherapy and primary care physician.
== END 2017-01-21 15:25 | disposition home or self-care (01) | DRG 754 ==
LOC: M PSY 16:58
PROVIDERS: ADMIT Psychiatry & Neurology Psychiatry; ATTEND Psychiatry & Neurology Psychiatry
DX: F32.9 Major depressive disorder, single episode, unspecified (principal); F10.10 Alcohol abuse, uncomplicated; I10 Essential (primary) hypertension; E03.9 Hypothyroidism, unspecified; E78.5 Hyperlipidemia, unspecified; K21.9 Gastro-esophageal reflux disease without esophagitis; Z91.5 Personal history of self-harm; E87.6 Hypokalemia; Z79.899 Other long term (current) drug therapy; Z88.2 Allergy status to sulfonamides

== ENCOUNTER → 2017-02-28 | Outpatient (CLI) | payer BC, OTHER ==
[~2017-02-28] MED LIST changes: +GABA-282 PO; +METO-346 PO; +METO25TAB PO; +PRAV40TA2 PO; +Sertraline Hcl PO
[2017-02-28 09:52] LABS: THYROXINE (T4) 9.4 UG/DL (4.5-12.0)
== END ==
LOC: M LAB 08:15
PROVIDERS: ATTEND Nurse Practitioner Psychiatric/Mental Health
DX: E03.9 Hypothyroidism, unspecified (principal); F32.9 Major depressive disorder, single episode, unspecified

== ENCOUNTER → 2017-02-28 | Outpatient (CLI) | payer BC, OTHER ==
--- NOTE | 2017-02-28 08:53 | REPMRS ---
Patient History The patient states she had a clinical breast exam in 2016. Patient is postmenopausal. Family history of breast cancer in mother at age 68. Digital Mammo Screening Bilat: February 28, 2017 - Exam #: [id number] Bilateral CC and MLO view(s) were taken. Technologist: Melissa Simon, Technologist Prior study comparison: January 27, 2016, digital mammo diagnostic bilateral performed at . June 28, 2015, left breast digital mammo diagnostic unilateral performed at . December 28, 2014, bilateral digital mammo screening bilat performed at . FINDINGS: There are scattered fibroglandular densities. There has been no change in the appearance of the mammogram from the prior studies. There is a mild amount of scattered fibroglandular density which is fairly symmetric. There is no interval development of dominant mass, architectural distortion, or clustered microcalcification suggestive of malignancy. ASSESSMENT: BI-RADS/ACR category 1 mammogram. Negative. Recommendation Routine screening mammogram in 1 year (for women over age 40). This mammogram was interpreted with the aid of an FDA-approved computer-aided dectection system. Electronically Signed By: Bin Siddiqui MD 02/28/17 0852
== END ==
LOC: M RAD 07:58
PROVIDERS: ATTEND Family Medicine
DX: Z12.31 Encounter for screening mammogram for malignant neoplasm of breast (principal); Z80.3 Family history of malignant neoplasm of breast

== ENCOUNTER → 2018-01-20 | Outpatient (CLI) | payer BC, OTHER | LOC: M RAD 09:21 | DX: D64.9 Anemia, unspecified (principal); R53.83 Other fatigue ==

== ENCOUNTER → 2019-02-24 | Outpatient (CLI) | payer BC, OTHER ==
[~2019-02-24] MED LIST changes: -GABA-282 PO; +GABA-843 PO; -METO12TA PO; +METO1TAB87 PO; +METO25TA4 PO; -METO25TAB PO
[2019-02-24 11:15] LABS: HEMATOCRIT 41.5 % (36.0-47.0); HEMOGLOBIN 13.8 g/dl (12.0-15.5); MEAN CORPUSCULAR HEMOGLOBIN 29.6 pg (27.0-33.0); MEAN CORPUSCULAR HGB CONC 33.3 g/dl (32.0-36.5); MEAN CORPUSCULAR VOLUME 89.1 fl (80.0-96.0); PLATELET COUNT, AUTOMATED 212 10^3/uL (150-450); RED BLOOD COUNT 4.66 10^6/uL (4.00-5.40); WHITE BLOOD COUNT 7.5 10^3/uL (4.0-10.0)
--- NOTE | 2019-02-24 11:28 | ECGEPIP ---
Stationary ECG Study [facility] Test Date: 2019-02-24 Pat Name: GEETHA BUTTERFIELD Department: Room: - Gender: F Dietitian Consultant: JOHN : 1965 Requested By: Danyell Arredondo Order Number: [id number] Reading MD: Lizeth Laboy Measurements Intervals [place] Rate: 65 P: 21 NM: 171 QRS: 9 QRSD: 96 T: 15 QT: 422 QTc: 439 Interpretive Statements SINUS RHYTHM NORMAL NO CHANGE C/W 01/16/17 Electronically Signed On 02-24-2019 11:28:07 EDT by Lizeth Laboy
[2019-02-24 11:52] LABS: ALBUMIN 4.4 GM/DL (3.2-5.2); ALT/SGPT 113 U/L (12-78); BILIRUBIN,TOTAL 0.8 MG/DL (0.2-1.0); BLOOD UREA NITROGEN 14 MG/DL (7-18); CALCIUM LEVEL 9.3 MG/DL (8.5-10.1); CARBON DIOXIDE LEVEL 29 MEQ/L (21-32); CHLORIDE LEVEL 104 MEQ/L (98-107); CHOLESTEROL LEVEL 314 MG/DL (<200); CHOLESTEROL RISK RATIO 6.541 (<5); CREATININE FOR GFR 0.69 MG/DL (0.55-1.30); GLOMERULAR FILTRATION RATE > 60.0 (>51); GLUCOSE, FASTING 112 MG/DL (70-100); HDL CHOLESTEROL 48 MG/DL (>40); IRON (FE) 100 UG/DL (50-170); LDL CHOLESTEROL 212 MG/DL (<100); NON-HDL-C 266 MG/DL; PERCENT SATURATION 22.6 % (13.2-45.0); POTASSIUM SERUM 4.5 MEQ/L (3.5-5.1); SODIUM LEVEL 139 MEQ/L (136-145); TOTAL 25(OH) VITAMIN D 14.6 NG/ML (30.0-100.0); TOTAL IRON BINDING CAPACITY 442 UG/DL (250-450); TOTAL PROTEIN 8.2 GM/DL (6.4-8.2); TRIGLYCERIDES LEVEL 272 MG/DL (<150)
== END ==
LOC: M LAB 09:43
PROVIDERS: ATTEND Family Medicine
DX: I11.9 Hypertensive heart disease without heart failure (principal)

== ENCOUNTER → 2019-03-26 | Outpatient (CLI) | payer BC, OTHER ==
--- NOTE | 2019-03-26 16:15 | REP ---
Chest two views HISTORY: Cough Comparison: 01/20/2018 The lungs are clear. The heart is normal in size. The pulmonary vasculature is normal in appearance. The bony structure is intact. IMPRESSION: No acute disease. Electronically Signed by Archie Barroso MD 03/26/2019 04:07 P
== END ==
LOC: M WUC 15:46
PROVIDERS: ATTEND Physician Assistant
DX: R05 Cough (principal)

== ENCOUNTER → 2022-04-24 | Outpatient (CLI) | payer BC, OTHER ==
[~2022-04-24] MED LIST changes: +GABA-282 PO; -GABA-843 PO; +OMEP1CAP73 PO; -OMEP20CA3 PO
== END ==
LOC: M WUC 09:14
DX: M25.541 Pain in joints of right hand (principal)

== ENCOUNTER → 2024-01-08 | Outpatient (CLI) | payer BC, OTHER ==
[2024-01-08 09:34] LABS: HEMATOCRIT 40.8 % (36.0-47.0); HEMOGLOBIN 13.4 g/dl (12.0-15.5); MEAN CORPUSCULAR HEMOGLOBIN 31.6 pg (27.0-33.0); MEAN CORPUSCULAR HGB CONC 32.8 g/dl (32.0-36.5); MEAN CORPUSCULAR VOLUME 96.2 fl (80.0-96.0); PLATELET COUNT, AUTOMATED 188 10^3/uL (150-450); RED BLOOD COUNT 4.24 10^6/uL (4.00-5.40); WHITE BLOOD COUNT 5.4 10^3/uL (4.0-10.0)
[2024-01-08 10:06] LABS: IRON (FE) 151 UG/DL (50-170); PERCENT SATURATION 39.5 % (13.2-45.0); TOTAL IRON BINDING CAPACITY 382 UG/DL (250-425)
[2024-01-08 10:07] LABS: ALBUMIN 3.6 G/DL (3.2-5.2); ALKALINE PHOSPHATASE 146 U/L (46-116); ALT/SGPT 37 U/L (7.0-40); AST/SGOT 164 U/L (<34); BILIRUBIN,TOTAL 1.7 MG/DL (0.3-1.2); BLOOD UREA NITROGEN 6 MG/DL (9-23); CALCIUM LEVEL 9.3 MG/DL (8.3-10.6); CARBON DIOXIDE LEVEL 29 MMOL/L (20-31); CHLORIDE LEVEL 102 MMOL/L (98-107); CHOLESTEROL LEVEL 178 MG/DL (<200); CHOLESTEROL RISK RATIO 6.28 (<5); CREATININE FOR GFR 0.55 MG/DL (0.55-1.30); GLOMERULAR FILTRATION RATE > 60.0 (>45); GLUCOSE, FASTING 125 MG/DL (74-106); HDL CHOLESTEROL 28.3 MG/DL (>40); LDL CHOLESTEROL 119.9 MG/DL (<100); NON-HDL-C 149.7 MG/DL; SODIUM LEVEL 138 MMOL/L (136-145); THYROID STIMULATING HORMONE 10.175 uIU/ML (0.55-4.78); TOTAL PROTEIN 7.8 G/DL (5.7-8.2); TRIGLYCERIDES LEVEL 149 MG/DL (<150)
[2024-01-08 10:08] LABS: TOTAL 25(OH) VITAMIN D 17.5 NG/ML (20.0-100.0)
[2024-01-08 10:15] LABS: HEMOGLOBIN A1c 5.6 % (4.0-6.0)
== END ==
LOC: M LAB 08:25
PROVIDERS: ATTEND Family Medicine
DX: D64.9 Anemia, unspecified (principal)